=== PATIENT | female | born 1945 | race Caucasian/White ===

== ENCOUNTER 2018-02-22 12:34 | Emergency (ER) | payer MEDICARE, MEDICAID ==
[~2018-02-22] VITALS: Ht 162.6 cm; Wt 77.3 kg
[~2018-02-22 12:34] MED LIST: ALPR0.5T8 PO; AMLO10TA2 PO; ATOR10TA70 PO; CEPH500C5 PO; HYDR-565 PO; LISI-234 PO; METF500T PO; METO-292 PO; ONDA8TAB6 PO; PANT-47 PO; PHEN-824 PO; POLY119P2 PO; PREG150C PO; TRAZ-146 PO
[2018-02-22 12:44] VITALS: BP 157/97
[2018-02-22] MEDS ORDERED: ONDA4TAB9 SL (13:56)
== END 2018-02-22 14:13 | disposition home or self-care (01) ==
LOC: ER 12:34
DX: R11.2 Nausea with vomiting, unspecified (principal); I10 Essential (primary) hypertension; G89.29 Other chronic pain; E11.9 Type 2 diabetes mellitus without complications; Z90.49 Acquired absence of other specified parts of digestive tract; Z98.890 Other specified postprocedural states; Z79.84 Long term (current) use of oral hypoglycemic drugs; Z79.899 Other long term (current) drug therapy
CPT/HCPCS: 99283

== ENCOUNTER 2019-01-10 09:02 | Emergency (ER) | payer MEDICARE, MEDICAID ==
[~2019-01-10] VITALS: Ht 162.6 cm; Wt 69.5 kg
[~2019-01-10 09:02] MED LIST changes: -CEPH500C5 PO; +HYDR-4353 PO; -HYDR-565 PO; +ONDA4TAB6 PO; -TRAZ-146 PO; +TRAZ-219 PO
[2019-01-10 09:58] LABS: CLARITY,URINE CLOUDY (Clear); COLOR,URINE YELLOW (Yellow); GLUCOSE, URINE NEGATIVE (Neg); KETONES,URINE 40 mg/dl (Neg); LEUKOCYTE ESTERASE ,URINE NEGATIVE (Neg); NITRITES, URINE POSITIVE (Neg); OCCULT BLOOD,URINE SMALL (Neg); PROTEIN,URINE 100 mg/dl (Neg); UROBILINOGEN,URINE 0.2 E.U/dL (0.2-1.0)
[2019-01-10 10:05] LABS: UA COLLECTION TYPE STRAIGHT CATH
[2019-01-10 10:07] LABS: ALANINE AMINOTRANSFERASE 19 U/L (12-78); ALBUMIN 3.9 G/DL (3.4-5.0); ALBUMIN/GLOBULIN RATIO 0.9 (1.1-1.5); ALKALINE PHOSPHATASE 92 IU/L (46-116); ANION GAP 14 (8-16); ASPARTATE AMINO TRANSFERASE 17 U/L (10-37); BILIRUBIN,TOTAL 0.5 MG/DL (0.1-1.0); BLOOD UREA NITROGEN 11 MG/DL (7-18); BUN/CREATININE RATIO 11.5 (6.6-38.0); CALCIUM 9.4 MG/DL (8.5-10.1); CHLORIDE 99 MMOL/L (99-107); CREATININE 0.96 MG/DL (0.40-0.90); GLUCOSE 143 MG/DL (70-104); LIPASE 50 U/L (73-393); PARTIAL THROMBOPLASTIN TIME 27 SECONDS (22-32); POTASSIUM 3.4 MMOL/L (3.5-5.1); PROTHROMBIN TIME 10.1 SECONDS (9.0-12.0); SODIUM 138 MMOL/L (135-145); TOTAL CARBON DIOXIDE 25.2 MMOL/L (24-32); TOTAL PROTEIN 8.1 G/DL (6.4-8.2); eGFR 57 ML/MIN
[2019-01-10 10:10] LABS: BASOPHILS # (AUTO) 0.1 X10'3 (0-0.2); BASOPHILS % (AUTO) 1.2 % (0-1); EOSINOPHILS % (AUTO) 0.4 % (0-6); HEMATOCRIT 42.6 % (35.0-45.0); HEMOGLOBIN 14.1 g/dl (12.0-16.0); LYMPHOCYTES # (AUTO) 1.3 X10'3 (1.1-4.8); LYMPHOCYTES % (AUTO) 16.5 % (21-51); MEAN CORPUSCULAR HEMOGLOBIN 29.4 PG (27.0-31.0); MEAN CORPUSCULAR HGB CONC 33.1 g/dL (33.0-36.5); MEAN CORPUSCULAR VOLUME 88.7 FL (78-98); MEAN PLATELET VOLUME 7.6 FL (7.4-10.4); MONOCYTES # (AUTO) 0.4 X10'3 (0-0.9); MONOCYTES % (AUTO) 4.5 % (2-12); NEUTROPHILS # (AUTO) 6.1 X10'3 (1.8-7.7); NEUTROPHILS % (AUTO) 77.4 % (42-75); PLATELET COUNT 318 X10'3 (140-440); WHITE BLOOD COUNT 7.9 X10'3 (4.5-11.0)
[2019-01-10 10:20] LABS: BACTERIA,URINE 4+ /HPF (Neg); MUCUS STRANDS FEW /LPF (Neg); SQUAMOUS EPITHELIAL CELL,UR MANY /LPF (FEW)
[2019-01-10] MEDS ORDERED: normal saline 1000ML IV soln IVB ONE (10:20)
[2019-01-10 10:35] VITALS: BP 170/98
--- NOTE | 2019-01-10 11:06 | NUR ---
Message left with son Rigo at this time.
--- NOTE | 2019-01-10 11:21 | NUR ---
message left with patients son. Patient needs ride home.
--- NOTE | 2019-01-10 11:31 | NUR ---
SPOKE WITH PTS SON KAE, SON TO CUFF SETTER LOCKSTITCH PT IN APPROX 30 MIN.
== END 2019-01-10 12:05 | disposition home or self-care (01) ==
LOC: ER 09:03
DX: R10.84 Generalized abdominal pain (principal); G89.29 Other chronic pain; K59.00 Constipation, unspecified; E78.00 Pure hypercholesterolemia, unspecified; I10 Essential (primary) hypertension; E11.9 Type 2 diabetes mellitus without complications; Z90.49 Acquired absence of other specified parts of digestive tract; Z90.710 Acquired absence of both cervix and uterus; Z98.51 Tubal ligation status; Z98.890 Other specified postprocedural states; Z79.84 Long term (current) use of oral hypoglycemic drugs; Z79.899 Other long term (current) drug therapy
CPT/HCPCS: 36415; 74018; 80053; 81001; 83690; 85025; 85610; 85730; 87077; 87088; 87186; 93005; 99284; J7030; P9612

== ENCOUNTER 2019-01-13 12:42 | Emergency (ER) | payer MEDICARE, MEDICAID ==
[~2019-01-13] VITALS: Ht 162.6 cm; Wt 74.7 kg
--- NOTE | 2019-01-13 12:54 | NUR ---
REPORT FROM EMS: PT HERE FOR ABDOMINAL AND BACK PAIN. PER EMS THIS IS A CHRONIC CONDITION. PATIENT TAKES NORCO FOR PAIN AND TRAZADONE FOR SLEEP AND ZOFRAN FOR NAUSEA. PATIENT WAS HERE ON 01/08 AND 01/10/19 FOR SIMILAR COMPLAINT BIBA FROM HOME
[2019-01-13 13:20] VITALS: BP 186/98
[2019-01-13] MEDS ORDERED: ketorolac tromethamine 15mg/ml inj. IM ONE (14:10)
[2019-01-14] MEDS ORDERED: POTA20TA19 PO (10:21)
[2019-01-14] MEDS ORDERED: ONDA4TAB12 PO (10:21)
[2019-01-14] MEDS ORDERED: CEPH500C5 PO (10:21)
== END 2019-01-13 14:19 | disposition home or self-care (01) ==
LOC: ER 12:43
DX: G89.29 Other chronic pain (principal); M54.5 Low back pain; R10.84 Generalized abdominal pain; I10 Essential (primary) hypertension; E78.00 Pure hypercholesterolemia, unspecified; G20 Parkinson's disease; Z90.49 Acquired absence of other specified parts of digestive tract; Z90.710 Acquired absence of both cervix and uterus; Z98.51 Tubal ligation status
CPT/HCPCS: 96372; 99283; J1885

== ENCOUNTER 2019-01-14 07:51 | Emergency (ER) | payer MEDICARE, MEDICAID ==
[~2019-01-14] VITALS: Ht 162.6 cm; Wt 70.0 kg
[2019-01-14] MEDS ORDERED: metoclopramide 5 mg/ml inj IV ONE (08:00)
[2019-01-14] MEDS ORDERED: normal saline 1000ML IV soln IVB ONE ×2 (08:00)
[2019-01-14] MEDS ORDERED: diphenhydrAMINE 50 mg/ml inj IV ONE (08:00)
[2019-01-14] MEDS ORDERED: ketorolac tromethamine 15mg/ml inj. IV ONE (08:00)
[2019-01-14 08:35] LABS: BASOPHILS # (AUTO) 0.1 X10'3 (0-0.2); BASOPHILS % (AUTO) 0.9 % (0-1); EOSINOPHILS # (AUTO) 0.2 X10'3 (0-0.9); EOSINOPHILS % (AUTO) 2.3 % (0-6); HEMATOCRIT 41.1 % (35.0-45.0); LYMPHOCYTES # (AUTO) 1.8 X10'3 (1.1-4.8); LYMPHOCYTES % (AUTO) 27.3 % (21-51); MEAN CORPUSCULAR VOLUME 88.4 FL (78-98); MEAN PLATELET VOLUME 7.8 FL (7.4-10.4); MONOCYTES # (AUTO) 0.4 X10'3 (0-0.9); MONOCYTES % (AUTO) 5.6 % (2-12); NEUTROPHILS # (AUTO) 4.1 X10'3 (1.8-7.7); NEUTROPHILS % (AUTO) 63.9 % (42-75); PLATELET COUNT 285 X10'3 (140-440); RED BLOOD COUNT 4.65 X10'6 (4.20-5.60); RED CELL DISTRIBUTION WIDTH 13.5 % (11.5-14.5); WHITE BLOOD COUNT 6.5 X10'3 (4.5-11.0)
[2019-01-14 08:42] LABS: ALANINE AMINOTRANSFERASE 17 U/L (12-78); ALBUMIN 3.9 G/DL (3.4-5.0); ALKALINE PHOSPHATASE 86 IU/L (46-116); ANION GAP 16 (8-16); ASPARTATE AMINO TRANSFERASE 18 U/L (10-37); BILIRUBIN,TOTAL 0.9 MG/DL (0.1-1.0); BLOOD UREA NITROGEN 19 MG/DL (7-18); CALCIUM 9.2 MG/DL (8.5-10.1); CHLORIDE 99 MMOL/L (99-107); CREATININE 0.95 MG/DL (0.40-0.90); GLUCOSE 139 MG/DL (70-104); LIPASE 70 U/L (73-393); SODIUM 138 MMOL/L (135-145); TOTAL CARBON DIOXIDE 23.5 MMOL/L (24-32); TOTAL PROTEIN 7.9 G/DL (6.4-8.2); eGFR 57 ML/MIN
[2019-01-14 08:53] LABS: POTASSIUM 2.8 MMOL/L (3.5-5.1)
[2019-01-14 09:02] LABS: CLARITY,URINE CLOUDY (Clear); COLOR,URINE YELLOW (Yellow); GLUCOSE, URINE NEGATIVE (Neg); KETONES,URINE 40 mg/dl (Neg); LEUKOCYTE ESTERASE ,URINE NEGATIVE (Neg); NITRITES, URINE POSITIVE (Neg); OCCULT BLOOD,URINE TRACE-INTACT (Neg); PROTEIN,URINE TRACE mg/dl (Neg)
[2019-01-14 09:03] LABS: UA COLLECTION TYPE CLN CATCH MIDSTREAM
[2019-01-14] MEDS ORDERED: potassium Cl 20 mEq SR tablet PO STA (09:03)
[2019-01-14] MEDS ORDERED: potassium 10mEq/100ml NS w/LIDOcaine (10mg/bag) IV ONE (09:05)
[2019-01-14 09:10] LABS: SQUAMOUS EPITHELIAL CELL,UR MODERATE /LPF (FEW)
[2019-01-14 09:11] LABS: BACTERIA,URINE 3+ /HPF (Neg); HYALINE CASTS 0-3 /LPF (NEGATIVE); RBC,URINE 0-2 /HPF (0-2); TRANSITIONAL EPI CELLS,URINE FEW /HPF; WBC,URINE 0-4 /HPF (0-4)
[2019-01-14 10:07] VITALS: BP 176/91
[2019-01-14] MEDS ORDERED: CEPH500C5 PO (10:21)
[2019-01-14] MEDS ORDERED: POTA20TA19 PO (10:21)
[2019-01-14] MEDS ORDERED: ONDA4TAB12 PO (10:21)
== END 2019-01-14 10:44 | disposition home or self-care (01) ==
LOC: ER 07:52
DX: E86.0 Dehydration (principal); E87.6 Hypokalemia; N39.0 Urinary tract infection, site not specified; G89.29 Other chronic pain; R10.84 Generalized abdominal pain; R11.2 Nausea with vomiting, unspecified; E78.00 Pure hypercholesterolemia, unspecified; I10 Essential (primary) hypertension; E11.9 Type 2 diabetes mellitus without complications; Z90.49 Acquired absence of other specified parts of digestive tract; Z90.710 Acquired absence of both cervix and uterus; Z98.51 Tubal ligation status; Z79.899 Other long term (current) drug therapy
CPT/HCPCS: 36415; 80053; 81001; 83690; 85025; 87077; 87088; 87186; 96374; 96375; 99284; J1200; J1885; J2765; J3480; J7030

== ENCOUNTER 2019-07-09 11:58 | Emergency (ER) | payer MEDICARE, MEDICAID ==
[~2019-07-09] VITALS: Ht 162.6 cm; Wt 72.8 kg
[~2019-07-09 11:58] MED LIST changes: +CEPH500C5 PO; +ONDA4TAB12 PO
[2019-07-09 13:37] LABS: BASOPHILS # (AUTO) 0.1 X10'3 (0-0.2); BASOPHILS % (AUTO) 0.8 % (0-1); EOSINOPHILS % (AUTO) 0.4 % (0-6); HEMATOCRIT 42.5 % (35.0-45.0); HEMOGLOBIN 14.3 g/dl (12.0-16.0); LYMPHOCYTES # (AUTO) 2.2 X10'3 (1.1-4.8); LYMPHOCYTES % (AUTO) 24.2 % (21-51); MEAN CORPUSCULAR HEMOGLOBIN 29.9 PG (27.0-31.0); MEAN CORPUSCULAR HGB CONC 33.7 g/dL (33.0-36.5); MEAN CORPUSCULAR VOLUME 88.5 FL (78-98); MEAN PLATELET VOLUME 8.5 FL (7.4-10.4); MONOCYTES # (AUTO) 0.5 X10'3 (0-0.9); MONOCYTES % (AUTO) 5.4 % (2-12); NEUTROPHILS # (AUTO) 6.3 X10'3 (1.8-7.7); NEUTROPHILS % (AUTO) 69.2 % (42-75); PLATELET COUNT 295 X10'3 (140-440); RED CELL DISTRIBUTION WIDTH 13.9 % (11.5-14.5); WHITE BLOOD COUNT 9.1 X10'3 (4.5-11.0)
[2019-07-09 13:45] LABS: ALANINE AMINOTRANSFERASE 15 U/L (12-78); ALBUMIN 3.9 G/DL (3.4-5.0); ALKALINE PHOSPHATASE 66 IU/L (46-116); ANION GAP 12 (8-16); ASPARTATE AMINO TRANSFERASE 11 U/L (10-37); BILIRUBIN,TOTAL 0.9 MG/DL (0.1-1.0); BLOOD UREA NITROGEN 12 MG/DL (7-18); BUN/CREATININE RATIO 10.1 (6.6-38.0); CALCIUM 9.3 MG/DL (8.5-10.1); CHLORIDE 101 MMOL/L (99-107); CREATININE 1.19 MG/DL (0.40-0.90); GLUCOSE 125 MG/DL (70-104); LIPASE 93 U/L (73-393); POTASSIUM 3.8 MMOL/L (3.5-5.1); SODIUM 137 MMOL/L (135-145); TOTAL CARBON DIOXIDE 24.1 MMOL/L (24-32); TOTAL PROTEIN 7.7 G/DL (6.4-8.2); eGFR 44 ML/MIN
[2019-07-09] MEDS ORDERED: ONDA4TAB12 PO (15:45)
[2019-07-09] MEDS ORDERED: diphenhydrAMINE 50 mg/ml inj IV ONE (15:45)
[2019-07-09] MEDS ORDERED: morphine 2 MG/ML inj. syringe IV ONE (15:45)
[2019-07-09] MEDS ORDERED: metoclopramide 5 mg/ml inj IV ONE (15:45)
[2019-07-09] MEDS ORDERED: AMOX-422 PO (15:45)
[2019-07-09 15:54] VITALS: BP 189/104
--- NOTE | 2019-07-09 15:55 | NUR ---
pt stated will call son eladia who is her ocean import representative to take her home.
== END 2019-07-09 17:03 | disposition home or self-care (01) ==
LOC: ER 11:58
DX: R10.31 Right lower quadrant pain (principal); G20 Parkinson's disease; E78.00 Pure hypercholesterolemia, unspecified; I10 Essential (primary) hypertension; E11.9 Type 2 diabetes mellitus without complications; G89.29 Other chronic pain; F41.9 Anxiety disorder, unspecified; Z90.49 Acquired absence of other specified parts of digestive tract; Z90.710 Acquired absence of both cervix and uterus; Z98.51 Tubal ligation status; Z98.890 Other specified postprocedural states; Z79.2 Long term (current) use of antibiotics; Z79.84 Long term (current) use of oral hypoglycemic drugs; Z79.899 Other long term (current) drug therapy
CPT/HCPCS: 36415; 80053; 83690; 85025; 85610; 96374; 96375; 99283; J1200; J2270; J2765

== ENCOUNTER 2019-07-13 10:18 | Emergency (ER) | payer MEDICARE, MEDICAID ==
[~2019-07-13] VITALS: Ht 175.3 cm; Wt 92.0 kg
[~2019-07-13 10:18] MED LIST changes: +AMOX-422 PO
[2019-07-13 11:28] LABS: BASOPHILS # (AUTO) 0.1 X10'3 (0-0.2); EOSINOPHILS # (AUTO) 0.2 X10'3 (0-0.9); EOSINOPHILS % (AUTO) 3.6 % (0-6); HEMATOCRIT 35.5 % (35.0-45.0); HEMOGLOBIN 11.9 g/dl (12.0-16.0); LYMPHOCYTES # (AUTO) 2.1 X10'3 (1.1-4.8); MEAN CORPUSCULAR HEMOGLOBIN 29.8 PG (27.0-31.0); MEAN CORPUSCULAR HGB CONC 33.6 g/dL (33.0-36.5); MEAN CORPUSCULAR VOLUME 88.7 FL (78-98); MEAN PLATELET VOLUME 8.3 FL (7.4-10.4); MONOCYTES # (AUTO) 0.4 X10'3 (0-0.9); MONOCYTES % (AUTO) 6.1 % (2-12); NEUTROPHILS # (AUTO) 3.2 X10'3 (1.8-7.7); NEUTROPHILS % (AUTO) 54.3 % (42-75); PLATELET COUNT 229 X10'3 (140-440); RED CELL DISTRIBUTION WIDTH 13.6 % (11.5-14.5)
[2019-07-13 11:39] LABS: CLARITY,URINE CLEAR (Clear); COLOR,URINE YELLOW (Yellow); GLUCOSE, URINE NEGATIVE (Neg); KETONES,URINE NEGATIVE (Neg); LEUKOCYTE ESTERASE ,URINE NEGATIVE (Neg); NITRITES, URINE NEGATIVE (Neg); OCCULT BLOOD,URINE NEGATIVE (Neg); PH,URINE 6.5 (4.8-8.0); PROTEIN,URINE NEGATIVE (Neg); UROBILINOGEN,URINE 0.2 E.U/dL (0.2-1.0)
[2019-07-13 11:43] LABS: UA COLLECTION TYPE STRAIGHT CATH
[2019-07-13 11:44] LABS: ALANINE AMINOTRANSFERASE 6 U/L (12-78); ALBUMIN 3.1 G/DL (3.4-5.0); ALKALINE PHOSPHATASE 54 IU/L (46-116); ANION GAP 11 (8-16); ASPARTATE AMINO TRANSFERASE 7 U/L (10-37); BILIRUBIN,TOTAL 0.4 MG/DL (0.1-1.0); BLOOD UREA NITROGEN 14 MG/DL (7-18); BUN/CREATININE RATIO 19.2 (6.6-38.0); CALCIUM 8.4 MG/DL (8.5-10.1); CHLORIDE 108 MMOL/L (99-107); CREATININE 0.73 MG/DL (0.40-0.90); GLUCOSE 104 MG/DL (70-104); POTASSIUM 3.8 MMOL/L (3.5-5.1); SODIUM 142 MMOL/L (135-145); TOTAL CARBON DIOXIDE 22.8 MMOL/L (24-32); TOTAL PROTEIN 6.2 G/DL (6.4-8.2); eGFR 78 ML/MIN
[2019-07-13 12:00] VITALS: BP 165/99
[2019-07-13] MEDS ORDERED: ondansetron/PF 4mg/2ml inj IV ONE (12:55)
== END 2019-07-13 14:00 | disposition home or self-care (01) ==
LOC: ER 10:19
DX: R10.32 Left lower quadrant pain (principal); G20 Parkinson's disease; E78.00 Pure hypercholesterolemia, unspecified; I10 Essential (primary) hypertension; E11.9 Type 2 diabetes mellitus without complications; G89.29 Other chronic pain; F41.9 Anxiety disorder, unspecified; Z90.49 Acquired absence of other specified parts of digestive tract; Z90.710 Acquired absence of both cervix and uterus; Z98.51 Tubal ligation status; Z98.890 Other specified postprocedural states
CPT/HCPCS: 36415; 74176; 80053; 81003; 85025; 85610; 96374; 99284; J2405; P9612

== ENCOUNTER 2019-07-14 17:54 | Emergency (ER) | payer MEDICARE, MEDICAID ==
[~2019-07-14] VITALS: Ht 162.6 cm; Wt 73.6 kg
[2019-07-14 18:40] VITALS: BP 160/122
[2019-07-14] MEDS ORDERED: proCHLORperazine 10 MG/2 ml inj IM ONE (19:35)
== END 2019-07-14 19:51 | disposition home or self-care (01) ==
LOC: ER 17:55
DX: G89.29 Other chronic pain (principal); R10.9 Unspecified abdominal pain; R11.0 Nausea; G20 Parkinson's disease; E78.00 Pure hypercholesterolemia, unspecified; I10 Essential (primary) hypertension; E11.9 Type 2 diabetes mellitus without complications; F41.9 Anxiety disorder, unspecified; Z90.49 Acquired absence of other specified parts of digestive tract; Z90.710 Acquired absence of both cervix and uterus; Z98.51 Tubal ligation status; Z88.1 Allergy status to other antibiotic agents; Z79.84 Long term (current) use of oral hypoglycemic drugs; Z79.899 Other long term (current) drug therapy
CPT/HCPCS: 96372; 99283; J0780

== ENCOUNTER 2019-08-01 06:52 | Emergency (ER) | payer MEDICARE, MEDICAID ==
[~2019-08-01] VITALS: Ht 162.6 cm; Wt 56.0 kg
[~2019-08-01 06:52] MED LIST changes: -AMOX-422 PO
[2019-08-01] MEDS ORDERED: ondansetron 4mg rapidly disintigrating tab PO ONE (07:25)
[2019-08-01] MEDS ORDERED: morphine 4 MG/ML inj SYRINge IM ONE (07:25)
[2019-08-01] MEDS ORDERED: ONDA8TAB13 PO (08:43)
[2019-08-01 09:00] VITALS: BP 175/94
== END 2019-08-01 08:59 | disposition home or self-care (01) ==
LOC: ER 06:52
DX: G89.29 Other chronic pain (principal); R10.84 Generalized abdominal pain; R11.2 Nausea with vomiting, unspecified; E78.00 Pure hypercholesterolemia, unspecified; I10 Essential (primary) hypertension; E11.9 Type 2 diabetes mellitus without complications; Z90.49 Acquired absence of other specified parts of digestive tract; Z90.710 Acquired absence of both cervix and uterus; Z98.51 Tubal ligation status; Z79.899 Other long term (current) drug therapy
CPT/HCPCS: 96374; 99284; J2270

== ENCOUNTER 2019-09-14 08:20 | Emergency (ER) | payer MEDICARE, MEDICAID ==
[~2019-09-14] VITALS: Ht 162.6 cm; Wt 88.0 kg
[~2019-09-14 08:20] MED LIST changes: +ONDA8TAB13 PO
[2019-09-14 08:52] LABS: BASOPHILS % (AUTO) 0.6 % (0-1); EOSINOPHILS % (AUTO) 0.6 % (0-6); HEMATOCRIT 38.5 % (35.0-45.0); HEMOGLOBIN 13.1 g/dl (12.0-16.0); LYMPHOCYTES % (AUTO) 18.8 % (21-51); MEAN CORPUSCULAR HEMOGLOBIN 30.2 PG (27.0-31.0); MEAN CORPUSCULAR HGB CONC 34.1 g/dL (33.0-36.5); MEAN CORPUSCULAR VOLUME 88.5 FL (78-98); MEAN PLATELET VOLUME 8.1 FL (7.4-10.4); MONOCYTES # (AUTO) 0.2 X10'3 (0-0.9); MONOCYTES % (AUTO) 3.6 % (2-12); NEUTROPHILS # (AUTO) 4.2 X10'3 (1.8-7.7); NEUTROPHILS % (AUTO) 76.4 % (42-75); PLATELET COUNT 217 X10'3 (140-440); RED BLOOD COUNT 4.35 X10'6 (4.20-5.60); RED CELL DISTRIBUTION WIDTH 14.2 % (11.5-14.5); WHITE BLOOD COUNT 5.5 X10'3 (4.5-11.0)
[2019-09-14 09:03] LABS: ALBUMIN 3.7 G/DL (3.4-5.0); ALKALINE PHOSPHATASE 60 IU/L (46-116); ANION GAP 10 (8-16); ASPARTATE AMINO TRANSFERASE 11 U/L (10-37); BILIRUBIN,TOTAL 0.7 MG/DL (0.1-1.0); BLOOD UREA NITROGEN 14 MG/DL (7-18); BUN/CREATININE RATIO 13.6 (6.6-38.0); CALCIUM 9.3 MG/DL (8.5-10.1); CHLORIDE 99 MMOL/L (99-107); CREATININE 1.03 MG/DL (0.40-0.90); GLUCOSE 131 MG/DL (70-104); POTASSIUM 3.5 MMOL/L (3.5-5.1); SODIUM 136 MMOL/L (135-145); TOTAL CARBON DIOXIDE 26.7 MMOL/L (24-32); TOTAL PROTEIN 7.4 G/DL (6.4-8.2); eGFR 52 ML/MIN
[2019-09-14 09:05] LABS: ALANINE AMINOTRANSFERASE < 6 U/L (12-78)
[2019-09-14] MEDS ORDERED: ondansetron/PF 4mg/2ml inj IV ONE (09:35)
[2019-09-14] MEDS ORDERED: HYDROcodone/acetaminophen 5mg/325mg tablet PO ONE (09:35)
[2019-09-14 09:57] LABS: LIPASE 54 U/L (73-393)
[2019-09-14] MEDS ORDERED: HYDR-3965 PO (10:22)
[2019-09-14 11:03] VITALS: BP 204/80
== END 2019-09-14 11:08 | disposition home or self-care (01) ==
LOC: ER 08:20
DX: G89.29 Other chronic pain (principal); R10.11 Right upper quadrant pain; R10.13 Epigastric pain; R11.10 Vomiting, unspecified; E78.00 Pure hypercholesterolemia, unspecified; I10 Essential (primary) hypertension; E11.9 Type 2 diabetes mellitus without complications; F41.9 Anxiety disorder, unspecified; Z90.49 Acquired absence of other specified parts of digestive tract; Z90.710 Acquired absence of both cervix and uterus; Z98.51 Tubal ligation status; Z98.890 Other specified postprocedural states; Z79.84 Long term (current) use of oral hypoglycemic drugs; Z79.899 Other long term (current) drug therapy
CPT/HCPCS: 36415; 80053; 83690; 85025; 85610; 96374; 99283; J2405

== ENCOUNTER 2019-10-05 09:21 | Emergency (ER) | payer MEDICARE, MEDICAID ==
[~2019-10-05] VITALS: Ht 162.6 cm; Wt 68.2 kg
[~2019-10-05 09:21] MED LIST changes: +HYDR-3965 PO
[2019-10-05] MEDS ORDERED: normal saline 1000ml 1,000 ML IV ONE ×2 (09:45→11:04)
[2019-10-05] MEDS ORDERED: metoclopramide 5 mg/ml inj IV ONE (09:45)
[2019-10-05 09:48] LABS: BASOPHILS % (AUTO) 0.9 % (0-1); EOSINOPHILS # (AUTO) 0.1 X10'3 (0-0.9); EOSINOPHILS % (AUTO) 1.5 % (0-6); HEMATOCRIT 40.4 % (35.0-45.0); HEMOGLOBIN 13.6 g/dl (12.0-16.0); LYMPHOCYTES # (AUTO) 1.7 X10'3 (1.1-4.8); LYMPHOCYTES % (AUTO) 30.3 % (21-51); MEAN CORPUSCULAR HEMOGLOBIN 29.8 PG (27.0-31.0); MEAN CORPUSCULAR HGB CONC 33.7 g/dL (33.0-36.5); MEAN CORPUSCULAR VOLUME 88.5 FL (78-98); MEAN PLATELET VOLUME 8.7 FL (7.4-10.4); MONOCYTES # (AUTO) 0.4 X10'3 (0-0.9); MONOCYTES % (AUTO) 6.9 % (2-12); NEUTROPHILS # (AUTO) 3.5 X10'3 (1.8-7.7); NEUTROPHILS % (AUTO) 60.4 % (42-75); PLATELET COUNT 238 X10'3 (140-440); RED BLOOD COUNT 4.56 X10'6 (4.20-5.60); RED CELL DISTRIBUTION WIDTH 13.7 % (11.5-14.5); WHITE BLOOD COUNT 5.7 X10'3 (4.5-11.0)
[2019-10-05 10:02] LABS: ALANINE AMINOTRANSFERASE 7 U/L (12-78); ALBUMIN 3.7 G/DL (3.4-5.0); ALKALINE PHOSPHATASE 69 IU/L (46-116); ANION GAP 10 (8-16); ASPARTATE AMINO TRANSFERASE 11 U/L (10-37); BILIRUBIN,TOTAL 0.6 MG/DL (0.1-1.0); BLOOD UREA NITROGEN 13 MG/DL (7-18); BUN/CREATININE RATIO 14.6 (6.6-38.0); CALCIUM 9.1 MG/DL (8.5-10.1); CHLORIDE 100 MMOL/L (99-107); CREATININE 0.89 MG/DL (0.40-0.90); GLUCOSE 122 MG/DL (70-104); LIPASE 71 U/L (73-393); POTASSIUM 3.5 MMOL/L (3.5-5.1); SODIUM 136 MMOL/L (135-145); TOTAL CARBON DIOXIDE 25.8 MMOL/L (24-32); TOTAL PROTEIN 7.4 G/DL (6.4-8.2); eGFR 62 ML/MIN
[2019-10-05 11:03] LABS: CLARITY,URINE CLOUDY (Clear); COLOR,URINE YELLOW (Yellow); GLUCOSE, URINE NEGATIVE (Neg); KETONES,URINE 15 mg/dl (Neg); LEUKOCYTE ESTERASE ,URINE MODERATE (Neg); NITRITES, URINE NEGATIVE (Neg); OCCULT BLOOD,URINE NEGATIVE (Neg); PROTEIN,URINE TRACE mg/dl (Neg); UROBILINOGEN,URINE 0.2 E.U/dL (0.2-1.0)
[2019-10-05] MEDS ORDERED: morphine 4 MG/ML inj SYRINge IV ONE (11:05)
[2019-10-05] MEDS ORDERED: ceFOXitin 1 GM/D5W 50mL IVPB 1,000 GM in normal saline 100ml IV soln 100 ML IV ONE (11:05)
[2019-10-05 11:13] LABS: UA COLLECTION TYPE CLN CATCH MIDSTREAM
[2019-10-05 11:16] VITALS: BP 199/72
[2019-10-05 11:30] LABS: WBC,URINE TNTC /HPF (0-4)
[2019-10-05 11:31] LABS: BACTERIA,URINE 4+ /HPF (Neg); RBC,URINE NONE SEEN /HPF (0-2); SQUAMOUS EPITHELIAL CELL,UR MANY /LPF (FEW)
[2019-10-05 11:32] LABS: WBC CLUMPS,URINE FEW /HPF (NEGATIVE)
[2019-10-05] MEDS ORDERED: iohexol 300mg/ml 100ml inj. ONE (11:32)
[2019-10-05] MEDS ORDERED: ceFOXitin 1 GM/D5W 50mL IVPB 50 ML IV ONE (11:35)
[2019-10-05] MEDS ORDERED: CefTRIAXone 1000mg IM Kit (w/lidocaine diluent) IM ONE (12:20)
[2019-10-05] MEDS ORDERED: CEPH500C5 PO (12:26)
[2019-10-05] MEDS ORDERED: ondansetron/PF 4mg/2ml inj IV ONE (12:50)
[2019-10-05] MEDS ORDERED: metroNIDAZOLE-Flagyl 500mg/NS 100 ML IV SCH (20:00)
== END 2019-10-05 14:08 | disposition home or self-care (01) ==
LOC: ER 09:22
DX: N39.0 Urinary tract infection, site not specified (principal); R11.2 Nausea with vomiting, unspecified; I10 Essential (primary) hypertension; E78.00 Pure hypercholesterolemia, unspecified; E11.9 Type 2 diabetes mellitus without complications; G89.29 Other chronic pain; F41.9 Anxiety disorder, unspecified; Z90.49 Acquired absence of other specified parts of digestive tract; Z90.710 Acquired absence of both cervix and uterus; Z98.51 Tubal ligation status; Z98.890 Other specified postprocedural states; Z79.84 Long term (current) use of oral hypoglycemic drugs; Z79.899 Other long term (current) drug therapy
CPT/HCPCS: 36415; 74177; 80053; 81001; 83690; 85025; 96365; 96372; 96375; 99284; J0694; J0696; J2270; J2405; J2765; J7030; Q9967; 96361

== ENCOUNTER 2019-10-20 09:45 | Emergency (ER) | payer MEDICARE, MEDICAID ==
[~2019-10-20] VITALS: Ht 162.6 cm; Wt 70.5 kg
[~2019-10-20 09:45] MED LIST changes: -HYDR-3965 PO
[2019-10-20] MEDS ORDERED: ondansetron/PF 4mg/2ml inj IV ONE (09:55)
[2019-10-20] MEDS ORDERED: normal saline 1000ML IV soln IVB ONE ×2 (09:55→11:10)
--- NOTE | 2019-10-20 10:21 | NUR ---
PT STATES THAT WHEN THE FLUID IS FINISHED SHE FOR SURE WILL NEED TO VOID. BRING COMMODE IN ROOM WITH HAT AND GIVE PT INSTRUCTIONS ON COLLECTION. ALSO GIVE PT CALL LIGHT FOR ASSISTANCE.
[2019-10-20 10:23] LABS: BASOPHILS % (AUTO) 0.4 % (0-1); EOSINOPHILS % (AUTO) 0.1 % (0-6); HEMATOCRIT 42.8 % (35.0-45.0); HEMOGLOBIN 14.5 g/dl (12.0-16.0); LYMPHOCYTES # (AUTO) 1.1 X10'3 (1.1-4.8); LYMPHOCYTES % (AUTO) 11.1 % (21-51); MEAN CORPUSCULAR HEMOGLOBIN 29.6 PG (27.0-31.0); MEAN CORPUSCULAR HGB CONC 33.9 g/dL (33.0-36.5); MEAN CORPUSCULAR VOLUME 87.4 FL (78-98); MEAN PLATELET VOLUME 8.6 FL (7.4-10.4); MONOCYTES # (AUTO) 0.3 X10'3 (0-0.9); MONOCYTES % (AUTO) 2.7 % (2-12); NEUTROPHILS # (AUTO) 8.4 X10'3 (1.8-7.7); NEUTROPHILS % (AUTO) 85.7 % (42-75); PLATELET COUNT 242 X10'3 (140-440); RED CELL DISTRIBUTION WIDTH 13.4 % (11.5-14.5); WHITE BLOOD COUNT 9.8 X10'3 (4.5-11.0)
[2019-10-20 10:58] LABS: ALANINE AMINOTRANSFERASE 11 U/L (12-78); ALBUMIN 3.7 G/DL (3.4-5.0); ALKALINE PHOSPHATASE 78 IU/L (46-116); ANION GAP 13 (8-16); ASPARTATE AMINO TRANSFERASE 10 U/L (10-37); BILIRUBIN,TOTAL 0.8 MG/DL (0.1-1.0); BLOOD UREA NITROGEN 12 MG/DL (7-18); BUN/CREATININE RATIO 12.8 (6.6-38.0); CALCIUM 9.2 MG/DL (8.5-10.1); CHLORIDE 94 MMOL/L (99-107); CREATININE 0.94 MG/DL (0.40-0.90); GLUCOSE 171 MG/DL (70-104); LIPASE 51 U/L (73-393); POTASSIUM 3.1 MMOL/L (3.5-5.1); SODIUM 131 MMOL/L (135-145); TOTAL CARBON DIOXIDE 23.7 MMOL/L (24-32); TOTAL PROTEIN 7.4 G/DL (6.4-8.2); eGFR 58 ML/MIN
--- NOTE | 2019-10-20 10:58 | NUR ---
PT STATES SHE TAKES MEDICATION FOR HTN BUT DIDNT TAKE IT TODAY DUE TO HER N/V
[2019-10-20] MEDS ORDERED: potassium Cl 20 mEq SR tablet PO STA (11:08)
[2019-10-20] MEDS ORDERED: metoclopramide 5 mg/ml inj IV ONE (11:10)
[2019-10-20 11:17] LABS: CLARITY,URINE CLOUDY (Clear); COLOR,URINE YELLOW (Yellow); GLUCOSE, URINE NEGATIVE (Neg); KETONES,URINE TRACE mg/dl (Neg); LEUKOCYTE ESTERASE ,URINE MODERATE (Neg); NITRITES, URINE NEGATIVE (Neg); OCCULT BLOOD,URINE SMALL (Neg); PH,URINE 6.5 (4.8-8.0); PROTEIN,URINE 100 mg/dl (Neg); UROBILINOGEN,URINE 0.2 E.U/dL (0.2-1.0)
[2019-10-20 11:20] LABS: UA COLLECTION TYPE CLN CATCH MIDSTREAM
[2019-10-20 11:32] LABS: SQUAMOUS EPITHELIAL CELL,UR MODERATE /LPF (FEW)
[2019-10-20 11:34] LABS: TRANSITIONAL EPI CELLS,URINE FEW /HPF
[2019-10-20 11:35] LABS: WBC,URINE 30-50 /HPF (0-4)
[2019-10-20 11:39] LABS: STARCH,URINE MANY /HPF (NEGATIVE)
[2019-10-20 11:40] LABS: BACTERIA,URINE 3+ /HPF (Neg)
[2019-10-20 11:41] LABS: WBC CLUMPS,URINE MANY /HPF (NEGATIVE)
[2019-10-20] MEDS ORDERED: cloNIDine 0.1 mg tablet PO ONE (12:15)
[2019-10-20 13:52] VITALS: BP 187/95
== END 2019-10-20 13:54 | disposition home or self-care (01) ==
LOC: ER 09:45
DX: E87.1 Hypo-osmolality and hyponatremia (principal); E87.6 Hypokalemia; R11.15 Cyclical vomiting syndrome unrelated to migraine; R11.2 Nausea with vomiting, unspecified; G89.29 Other chronic pain; R10.9 Unspecified abdominal pain; G20 Parkinson's disease; E78.00 Pure hypercholesterolemia, unspecified; I10 Essential (primary) hypertension; E11.9 Type 2 diabetes mellitus without complications; F41.9 Anxiety disorder, unspecified; Z90.49 Acquired absence of other specified parts of digestive tract; Z90.710 Acquired absence of both cervix and uterus; Z98.51 Tubal ligation status; Z98.890 Other specified postprocedural states; Z79.2 Long term (current) use of antibiotics; Z79.899 Other long term (current) drug therapy
CPT/HCPCS: 36415; 80053; 81001; 83690; 85025; 87077; 87088; 87186; 96361; 96374; 96375; 99283; J2405; J2765; J7030

== ENCOUNTER 2019-10-23 17:07 | Emergency (ER) | payer MEDICARE, MEDICAID ==
[~2019-10-23] VITALS: Ht 162.6 cm; Wt 70.5 kg
[2019-10-23] MEDS ORDERED: normal saline 1000ML IV soln IVB ONE (17:30)
[2019-10-23] MEDS ORDERED: ondansetron/PF 4mg/2ml inj IV ONE (17:30)
[2019-10-23] MEDS ORDERED: morphine 4 MG/ML inj SYRINge IV ONE (17:35)
[2019-10-23 18:04] LABS: BASOPHILS % (AUTO) 0.5 % (0-1); EOSINOPHILS # (AUTO) 0.1 X10'3 (0-0.9); EOSINOPHILS % (AUTO) 1.1 % (0-6); HEMATOCRIT 39.8 % (35.0-45.0); HEMOGLOBIN 13.6 g/dl (12.0-16.0); LYMPHOCYTES % (AUTO) 25.3 % (21-51); MEAN CORPUSCULAR HEMOGLOBIN 29.5 PG (27.0-31.0); MEAN CORPUSCULAR HGB CONC 34.1 g/dL (33.0-36.5); MEAN CORPUSCULAR VOLUME 86.6 FL (78-98); MEAN PLATELET VOLUME 8.5 FL (7.4-10.4); MONOCYTES # (AUTO) 0.6 X10'3 (0-0.9); MONOCYTES % (AUTO) 7.2 % (2-12); NEUTROPHILS # (AUTO) 5.1 X10'3 (1.8-7.7); NEUTROPHILS % (AUTO) 65.9 % (42-75); PLATELET COUNT 254 X10'3 (140-440); RED BLOOD COUNT 4.59 X10'6 (4.20-5.60); RED CELL DISTRIBUTION WIDTH 13.1 % (11.5-14.5); WHITE BLOOD COUNT 7.7 X10'3 (4.5-11.0)
[2019-10-23 18:08] LABS: ALANINE AMINOTRANSFERASE 6 U/L (12-78); ALBUMIN 3.5 G/DL (3.4-5.0); ALKALINE PHOSPHATASE 70 IU/L (46-116); ANION GAP 12 (8-16); ASPARTATE AMINO TRANSFERASE 22 U/L (10-37); BILIRUBIN,TOTAL 0.7 MG/DL (0.1-1.0); BLOOD UREA NITROGEN 9 MG/DL (7-18); BUN/CREATININE RATIO 9.6 (6.6-38.0); CALCIUM 8.6 MG/DL (8.5-10.1); CHLORIDE 99 MMOL/L (99-107); CREATININE 0.94 MG/DL (0.40-0.90); GLUCOSE 105 MG/DL (70-104); LIPASE 82 U/L (73-393); POTASSIUM 3.2 MMOL/L (3.5-5.1); SODIUM 136 MMOL/L (135-145); TOTAL CARBON DIOXIDE 24.8 MMOL/L (24-32); TOTAL PROTEIN 6.9 G/DL (6.4-8.2); eGFR 58 ML/MIN
--- NOTE | 2019-10-23 18:44 | NUR ---
Pt. BP 209/78, Dr. Smith aware. Dr. Smith approved discharge due to Pt. Hx of high blood pressure being Pt. baseline.
[2019-10-23 19:17] VITALS: BP 229/78
[2019-10-23 19:28] LABS: CLARITY,URINE CLOUDY (Clear); COLOR,URINE YELLOW (Yellow); GLUCOSE, URINE NEGATIVE (Neg); KETONES,URINE NEGATIVE (Neg); LEUKOCYTE ESTERASE ,URINE SMALL (Neg); NITRITES, URINE NEGATIVE (Neg); OCCULT BLOOD,URINE NEGATIVE (Neg); PROTEIN,URINE NEGATIVE (Neg); URINE HCG NEGATIVE (NEG); UROBILINOGEN,URINE 0.2 E.U/dL (0.2-1.0)
[2019-10-23 19:37] LABS: UA COLLECTION TYPE CLN CATCH MIDSTREAM
[2019-10-23 19:48] LABS: BACTERIA,URINE 3+ /HPF (Neg); MUCUS STRANDS NONE SEEN /LPF (Neg); RBC,URINE NONE SEEN /HPF (0-2); SQUAMOUS EPITHELIAL CELL,UR FEW /LPF (FEW)
[2019-10-23 19:49] LABS: WBC CLUMPS,URINE FEW /HPF (NEGATIVE)
--- NOTE | 2019-10-26 13:18 | NUR ---
PT CALLED WITH REGARDS TO HER VISIT ON 10/23/19 AND INFORMED THAT LAB RESULTS SHOWED SHE WAS POSITIVE FOR A UTI AND THAT ABX WERE NEEDED TO TREAT IT. PT REQUESTED THAT RX BE CALLED INTO [facility] [place]. KEFLEX 500MG PO TID X7 DAYS # 21 CALLED INTO [facility] [place] REQUESTED.
== END 2019-10-23 19:15 | disposition home or self-care (01) ==
LOC: ER 17:08
DX: G89.29 Other chronic pain (principal); R10.33 Periumbilical pain; R11.2 Nausea with vomiting, unspecified; E78.00 Pure hypercholesterolemia, unspecified; I10 Essential (primary) hypertension; E11.9 Type 2 diabetes mellitus without complications; F41.9 Anxiety disorder, unspecified; Z90.49 Acquired absence of other specified parts of digestive tract; Z90.710 Acquired absence of both cervix and uterus; Z98.51 Tubal ligation status; Z98.890 Other specified postprocedural states; Z79.84 Long term (current) use of oral hypoglycemic drugs; Z79.899 Other long term (current) drug therapy
CPT/HCPCS: 36415; 80053; 81001; 81025; 83690; 85025; 87077; 87088; 87186; 96361; 96374; 96375; 99283; J2270; J2405; J7030

== ENCOUNTER 2019-10-24 08:27 | Emergency (ER) | payer MEDICARE, MEDICAID ==
[~2019-10-24] VITALS: Ht 162.6 cm; Wt 70.5 kg
[2019-10-24] MEDS ORDERED: morphine 4 MG/ML inj SYRINge IV ONE (08:55)
[2019-10-24] MEDS ORDERED: pantoprazole 40 MG vial IV ONE (08:55)
[2019-10-24] MEDS ORDERED: ondansetron/PF 4mg/2ml inj IV ONE (08:55)
[2019-10-24] MEDS ORDERED: diphenhydrAMINE 50 mg/ml inj IV ONE (08:55)
[2019-10-24] MEDS ORDERED: amLODIPine 5mg tablet PO ONE (09:40)
[2019-10-24] MEDS ORDERED: lisinopril 10 MG tablet PO ONE (09:40)
--- NOTE | 2019-10-24 09:53 | NUR ---
iva was told about pt's high bp of 214/113
--- NOTE | 2019-10-24 10:05 | NUR ---
patient will be observed for an hour to see if the bp comes down.
--- NOTE | 2019-10-24 10:14 | NUR ---
bp: 180/76
[2019-10-24 10:52] VITALS: BP 158/99
== END 2019-10-24 10:54 | disposition home or self-care (01) ==
LOC: ER 08:28
DX: R10.84 Generalized abdominal pain (principal); R11.2 Nausea with vomiting, unspecified; G89.29 Other chronic pain; G20 Parkinson's disease; E78.00 Pure hypercholesterolemia, unspecified; I10 Essential (primary) hypertension; E11.9 Type 2 diabetes mellitus without complications; F41.9 Anxiety disorder, unspecified; Z90.49 Acquired absence of other specified parts of digestive tract; Z90.710 Acquired absence of both cervix and uterus; Z98.51 Tubal ligation status; Z98.890 Other specified postprocedural states; Z79.2 Long term (current) use of antibiotics; Z79.899 Other long term (current) drug therapy
CPT/HCPCS: 96374; 96375; 99283; C9113; J1200; J2270; J2405

== ENCOUNTER 2019-10-25 02:59 | Emergency (ER) | payer MEDICARE, MEDICAID ==
[~2019-10-25] VITALS: Ht 162.6 cm; Wt 70.5 kg
[2019-10-25] MEDS ORDERED: LORazepam 2 mg/ml vial IM ONE (03:10)
[2019-10-25] MEDS ORDERED: morphine 4 MG/ML inj SYRINge IM ONE (03:10)
[2019-10-25] MEDS ORDERED: ondansetron 4mg rapidly disintigrating tab PO ONE (03:10)
[2019-10-25] MEDS ORDERED: proCHLORperazine 10 MG/2 ml inj IM ONE (04:05)
[2019-10-25 04:12] VITALS: BP 152/99
== END 2019-10-25 04:14 | disposition home or self-care (01) ==
LOC: ER 02:59
DX: G89.29 Other chronic pain (principal); R10.12 Left upper quadrant pain; E78.00 Pure hypercholesterolemia, unspecified; I10 Essential (primary) hypertension; E11.9 Type 2 diabetes mellitus without complications; F41.9 Anxiety disorder, unspecified; Z90.49 Acquired absence of other specified parts of digestive tract; Z90.710 Acquired absence of both cervix and uterus; Z98.890 Other specified postprocedural states; Z98.51 Tubal ligation status; Z79.84 Long term (current) use of oral hypoglycemic drugs; Z79.899 Other long term (current) drug therapy
CPT/HCPCS: 96372; 99283; J0780; J2060; J2270

== ENCOUNTER 2019-10-29 11:29 | Emergency (ER) | payer MEDICARE, MEDICAID ==
[~2019-10-29] VITALS: Ht 162.6 cm; Wt 70.5 kg
[2019-10-29] MEDS ORDERED: ondansetron/PF 4mg/2ml inj IV ONE (12:05)
[2019-10-29] MEDS ORDERED: normal saline 1000ml 1,000 ML IV ONE (12:05)
[2019-10-29] MEDS ORDERED: proCHLORperazine 10 MG/2 ml inj IV ONE (12:05)
[2019-10-29] MEDS ORDERED: labetalol 20mg/4ml (5mg/ml) syringe IV ONE ×2 (13:05→14:25)
[2019-10-29 14:14] LABS: BASOPHILS # (AUTO) 0.1 X10'3 (0-0.2); BASOPHILS % (AUTO) 1.1 % (0-1); EOSINOPHILS # (AUTO) 0.1 X10'3 (0-0.9); EOSINOPHILS % (AUTO) 0.6 % (0-6); HEMATOCRIT 38.4 % (35.0-45.0); HEMOGLOBIN 13.1 g/dl (12.0-16.0); LYMPHOCYTES # (AUTO) 2.1 X10'3 (1.1-4.8); MEAN CORPUSCULAR HEMOGLOBIN 29.9 PG (27.0-31.0); MEAN CORPUSCULAR HGB CONC 34.1 g/dL (33.0-36.5); MEAN CORPUSCULAR VOLUME 87.8 FL (78-98); MEAN PLATELET VOLUME 8.2 FL (7.4-10.4); MONOCYTES # (AUTO) 0.5 X10'3 (0-0.9); MONOCYTES % (AUTO) 6.2 % (2-12); NEUTROPHILS # (AUTO) 5.6 X10'3 (1.8-7.7); NEUTROPHILS % (AUTO) 67.1 % (42-75); PLATELET COUNT 246 X10'3 (140-440); RED BLOOD COUNT 4.37 X10'6 (4.20-5.60); RED CELL DISTRIBUTION WIDTH 13.4 % (11.5-14.5); WHITE BLOOD COUNT 8.4 X10'3 (4.5-11.0)
[2019-10-29] MEDS ORDERED: LORazepam 2 mg/ml vial IV ONE (14:15)
[2019-10-29] MEDS ORDERED: amLODIPine 5mg tablet PO ONE (14:25)
[2019-10-29 14:31] LABS: ALANINE AMINOTRANSFERASE 14 U/L (12-78); ALBUMIN 3.3 G/DL (3.4-5.0); ALBUMIN/GLOBULIN RATIO 1.1 (1.1-1.5); ALKALINE PHOSPHATASE 67 IU/L (46-116); ANION GAP 7 (8-16); ASPARTATE AMINO TRANSFERASE 10 U/L (10-37); BILIRUBIN,TOTAL 0.5 MG/DL (0.1-1.0); BLOOD UREA NITROGEN 10 MG/DL (7-18); BUN/CREATININE RATIO 12.7 (6.6-38.0); CALCIUM 8.1 MG/DL (8.5-10.1); CHLORIDE 105 MMOL/L (99-107); CREATININE 0.79 MG/DL (0.40-0.90); GLUCOSE 108 MG/DL (70-104); POTASSIUM 3.1 MMOL/L (3.5-5.1); SODIUM 141 MMOL/L (135-145); TOTAL CARBON DIOXIDE 28.6 MMOL/L (24-32); TOTAL PROTEIN 6.4 G/DL (6.4-8.2); eGFR 71 ML/MIN
[2019-10-29 14:34] LABS: LIPASE 157 U/L (73-393); TROPONIN I < 0.04 NG/ML (0.0-0.05)
[2019-10-29] MEDS ORDERED: PROC-8 PO (14:54)
[2019-10-29] MEDS ORDERED: ONDA8TAB6 PO (14:54)
[2019-10-29 15:03] LABS: CLARITY,URINE CLEAR (Clear); COLOR,URINE YELLOW (Yellow); GLUCOSE, URINE NEGATIVE (Neg); KETONES,URINE TRACE mg/dl (Neg); LEUKOCYTE ESTERASE ,URINE NEGATIVE (Neg); NITRITES, URINE NEGATIVE (Neg); OCCULT BLOOD,URINE NEGATIVE (Neg); PROTEIN,URINE NEGATIVE (Neg); UA COLLECTION TYPE NON-SPECIFIED; UROBILINOGEN,URINE 0.2 E.U/dL (0.2-1.0)
--- NOTE | 2019-10-29 15:30 | NUR ---
TELEPHONE CALL TO SON, KAE MCKINNEY. SON IS ON HIS WAY HERE FOR DC TRANSPORTATION.
[2019-10-29 15:41] VITALS: BP 196/103
== END 2019-10-29 15:58 | disposition home or self-care (01) ==
LOC: ER 11:29
DX: R11.2 Nausea with vomiting, unspecified (principal); R10.84 Generalized abdominal pain; E78.00 Pure hypercholesterolemia, unspecified; I10 Essential (primary) hypertension; E11.9 Type 2 diabetes mellitus without complications; G89.29 Other chronic pain; F41.9 Anxiety disorder, unspecified; Z90.49 Acquired absence of other specified parts of digestive tract; Z90.710 Acquired absence of both cervix and uterus; Z98.890 Other specified postprocedural states; Z98.51 Tubal ligation status; Z79.84 Long term (current) use of oral hypoglycemic drugs; Z79.899 Other long term (current) drug therapy
CPT/HCPCS: 36415; 74176; 80053; 81003; 83605; 83690; 84484; 85025; 93005; 96361; 96374; 96375; 96376; 99284; J0780; J2060; J2405; J7030; J3490

== ENCOUNTER 2019-11-15 11:44 | Emergency (ER) | payer MEDICARE, MEDICAID ==
[~2019-11-15] VITALS: Ht 162.6 cm; Wt 68.0 kg
[~2019-11-15 11:44] MED LIST changes: +PROC-8 PO
[2019-11-15] MEDS ORDERED: normal saline 1000ML IV soln IVB ONE ×2 (12:05→13:45)
[2019-11-15] MEDS ORDERED: metoclopramide 5 mg/ml inj IV ONE (12:05)
[2019-11-15] MEDS ORDERED: LORazepam 2 mg/ml vial IV ONE (12:05)
[2019-11-15] MEDS ORDERED: diphenhydrAMINE 50 mg/ml inj IV ONE (12:05)
[2019-11-15 12:25] LABS: BASOPHILS # (AUTO) 0.1 X10'3 (0-0.2); BASOPHILS % (AUTO) 0.9 % (0-1); EOSINOPHILS # (AUTO) 0.1 X10'3 (0-0.9); EOSINOPHILS % (AUTO) 1.3 % (0-6); HEMATOCRIT 40.3 % (35.0-45.0); HEMOGLOBIN 13.6 g/dl (12.0-16.0); LYMPHOCYTES # (AUTO) 1.5 X10'3 (1.1-4.8); LYMPHOCYTES % (AUTO) 24.2 % (21-51); MEAN CORPUSCULAR HEMOGLOBIN 29.7 PG (27.0-31.0); MEAN CORPUSCULAR HGB CONC 33.8 g/dL (33.0-36.5); MEAN CORPUSCULAR VOLUME 87.9 FL (78-98); MEAN PLATELET VOLUME 8.2 FL (7.4-10.4); MONOCYTES # (AUTO) 0.4 X10'3 (0-0.9); MONOCYTES % (AUTO) 5.7 % (2-12); NEUTROPHILS # (AUTO) 4.2 X10'3 (1.8-7.7); NEUTROPHILS % (AUTO) 67.9 % (42-75); PLATELET COUNT 270 X10'3 (140-440); RED BLOOD COUNT 4.59 X10'6 (4.20-5.60); RED CELL DISTRIBUTION WIDTH 13.6 % (11.5-14.5); WHITE BLOOD COUNT 6.2 X10'3 (4.5-11.0)
[2019-11-15 12:46] LABS: ALANINE AMINOTRANSFERASE 14 U/L (12-78); ALBUMIN 3.5 G/DL (3.4-5.0); ALBUMIN/GLOBULIN RATIO 0.9 (1.1-1.5); ALKALINE PHOSPHATASE 66 IU/L (46-116); ANION GAP 15 (8-16); ASPARTATE AMINO TRANSFERASE 11 U/L (10-37); BILIRUBIN,TOTAL 0.8 MG/DL (0.1-1.0); BLOOD UREA NITROGEN 10 MG/DL (7-18); BUN/CREATININE RATIO 11.4 (6.6-38.0); CALCIUM 9.3 MG/DL (8.5-10.1); CHLORIDE 102 MMOL/L (99-107); CREATININE 0.88 MG/DL (0.40-0.90); GLUCOSE 100 MG/DL (70-104); LIPASE 58 U/L (73-393); POTASSIUM 3.6 MMOL/L (3.5-5.1); SODIUM 138 MMOL/L (135-145); TOTAL CARBON DIOXIDE 21.1 MMOL/L (24-32); TOTAL PROTEIN 7.5 G/DL (6.4-8.2); eGFR 62 ML/MIN
[2019-11-15] MEDS ORDERED: ONDA4TAB12 PO (13:20)
[2019-11-15 13:30] LABS: CLARITY,URINE CLOUDY (Clear); COLOR,URINE YELLOW (Yellow); GLUCOSE, URINE NEGATIVE (Neg); KETONES,URINE 40 mg/dl (Neg); LEUKOCYTE ESTERASE ,URINE LARGE (Neg); NITRITES, URINE NEGATIVE (Neg); OCCULT BLOOD,URINE TRACE-INTACT (Neg); PROTEIN,URINE NEGATIVE (Neg); UROBILINOGEN,URINE 0.2 E.U/dL (0.2-1.0)
[2019-11-15 13:37] LABS: UA COLLECTION TYPE CLN CATCH MIDSTREAM
[2019-11-15 13:39] LABS: MUCUS STRANDS FEW /LPF (Neg); SQUAMOUS EPITHELIAL CELL,UR MODERATE /LPF (FEW); TRANSITIONAL EPI CELLS,URINE FEW /HPF
[2019-11-15 13:40] LABS: BACTERIA,URINE 4+ /HPF (Neg); RBC,URINE NONE SEEN /HPF (0-2); WBC,URINE TNTC /HPF (0-4)
[2019-11-15] MEDS ORDERED: CefTRIAXone 2gm/D5W 50ml 50 ML IV ONE (13:45)
[2019-11-15] MEDS ORDERED: CEPH500C5 PO (13:45)
[2019-11-15] MEDS ORDERED: haloperidol lactate 5mg/ml inj IM ONE (13:45)
[2019-11-15] MEDS ORDERED: cloNIDine 0.1 mg tablet PO ONE (14:20)
[2019-11-15 14:41] VITALS: BP 185/91
== END 2019-11-15 14:44 | disposition home or self-care (01) ==
LOC: ER 11:44
DX: N39.0 Urinary tract infection, site not specified (principal); R11.2 Nausea with vomiting, unspecified; E78.00 Pure hypercholesterolemia, unspecified; I10 Essential (primary) hypertension; E11.9 Type 2 diabetes mellitus without complications; G89.29 Other chronic pain; F41.9 Anxiety disorder, unspecified; Z90.49 Acquired absence of other specified parts of digestive tract; Z90.710 Acquired absence of both cervix and uterus; Z98.51 Tubal ligation status; Z98.890 Other specified postprocedural states; Z79.84 Long term (current) use of oral hypoglycemic drugs; Z79.899 Other long term (current) drug therapy
CPT/HCPCS: 36415; 80053; 81001; 83690; 85025; 87077; 87088; 87186; 93005; 96361; 96365; 96372; 96375; 99284; J0696; J1200; J1630; J2060; J2765; J7030

== ENCOUNTER 2019-12-05 10:22 | Emergency (ER) | payer MEDICARE, MEDICAID ==
[~2019-12-05] VITALS: Ht 162.6 cm; Wt 68.2 kg
[~2019-12-05 10:22] MED LIST changes: -TRAZ-219 PO; +TRAZ-256 PO
[2019-12-05] MEDS ORDERED: normal saline 1000ML IV soln IVB ONE (11:10)
[2019-12-05] MEDS ORDERED: ondansetron/PF 4mg/2ml inj IV ONE (11:10)
[2019-12-05] MEDS ORDERED: morphine 4 MG/ML inj SYRINge IV ONE (11:10)
[2019-12-05 11:14] LABS: BASOPHILS # (AUTO) 0.1 X10'3 (0-0.2); BASOPHILS % (AUTO) 1.2 % (0-1); EOSINOPHILS # (AUTO) 0.1 X10'3 (0-0.9); EOSINOPHILS % (AUTO) 0.9 % (0-6); HEMOGLOBIN 13.6 g/dl (12.0-16.0); LYMPHOCYTES # (AUTO) 1.5 X10'3 (1.1-4.8); LYMPHOCYTES % (AUTO) 24.1 % (21-51); MEAN CORPUSCULAR HEMOGLOBIN 29.4 PG (27.0-31.0); MEAN CORPUSCULAR VOLUME 86.6 FL (78-98); MEAN PLATELET VOLUME 8.7 FL (7.4-10.4); MONOCYTES # (AUTO) 0.4 X10'3 (0-0.9); MONOCYTES % (AUTO) 6.2 % (2-12); NEUTROPHILS # (AUTO) 4.2 X10'3 (1.8-7.7); NEUTROPHILS % (AUTO) 67.6 % (42-75); PLATELET COUNT 226 X10'3 (140-440); RED BLOOD COUNT 4.62 X10'6 (4.20-5.60); RED CELL DISTRIBUTION WIDTH 14.1 % (11.5-14.5); WHITE BLOOD COUNT 6.2 X10'3 (4.5-11.0)
[2019-12-05] MEDS ORDERED: iohexol 300mg/ml 100ml inj. ONE (11:19)
[2019-12-05 11:27] LABS: ALANINE AMINOTRANSFERASE 9 U/L (12-78); ALBUMIN 3.6 G/DL (3.4-5.0); ALKALINE PHOSPHATASE 69 IU/L (46-116); AMYLASE 37 U/L (25-115); ANION GAP 15 (8-16); ASPARTATE AMINO TRANSFERASE 12 U/L (10-37); BILIRUBIN,TOTAL 1.2 MG/DL (0.1-1.0); BLOOD UREA NITROGEN 13 MG/DL (7-18); CALCIUM 8.8 MG/DL (8.5-10.1); CHLORIDE 99 MMOL/L (99-107); CREATININE 1.08 MG/DL (0.40-0.90); GLUCOSE 106 MG/DL (70-104); LIPASE 65 U/L (73-393); POTASSIUM 3.4 MMOL/L (3.5-5.1); SODIUM 138 MMOL/L (135-145); TOTAL CARBON DIOXIDE 24.4 MMOL/L (24-32); TOTAL PROTEIN 7.2 G/DL (6.4-8.2); eGFR 49 ML/MIN
[2019-12-05 12:34] LABS: CLARITY,URINE CLOUDY (Clear); COLOR,URINE YELLOW (Yellow); GLUCOSE, URINE NEGATIVE (Neg); KETONES,URINE TRACE mg/dl (Neg); LEUKOCYTE ESTERASE ,URINE MODERATE (Neg); NITRITES, URINE NEGATIVE (Neg); OCCULT BLOOD,URINE NEGATIVE (Neg); PROTEIN,URINE TRACE mg/dl (Neg); UA COLLECTION TYPE CLN CATCH MIDSTREAM
[2019-12-05 12:40] LABS: WBC,URINE 30-50 /HPF (0-4)
[2019-12-05 12:41] LABS: BACTERIA,URINE 4+ /HPF (Neg); MUCUS STRANDS NONE SEEN /LPF (Neg); RBC,URINE NONE SEEN /HPF (0-2); RENAL CELLS, URINE FEW /HPF; SQUAMOUS EPITHELIAL CELL,UR MODERATE /LPF (FEW)
[2019-12-05] MEDS ORDERED: CefTRIAXone 2gm/D5W 50ml 50 ML IV SCH (13:05)
[2019-12-05] MEDS ORDERED: CEPH-572 PO (13:06)
[2019-12-05] MEDS ORDERED: POTASSIUM BICARB 20meq eff tab 20 MEQ TABLET.EFF PO ONE (13:10)
--- NOTE | 2019-12-05 13:30 | NUR ---
PT REPORTS STILL FEELING A LITTLE NAUSEATED, CHILD INFORMED, ORDERS TO FOLLOW.
[2019-12-05] MEDS ORDERED: diphenhydrAMINE 50 mg/ml inj IV ONE (13:35)
[2019-12-05] MEDS ORDERED: metoclopramide 5 mg/ml inj IV ONE (13:35)
[2019-12-05] MEDS ORDERED: DIPH25CA83 PO (14:08)
[2019-12-05 14:16] VITALS: BP 205/93
--- NOTE | 2019-12-08 09:33 | NUR ---
called left a message for a name of a pharmacy . pt. needs to stop keflex and start cipro 500mg,po bid x 7 days
== END 2019-12-05 14:36 | disposition home or self-care (01) ==
LOC: ER 10:22
DX: N39.0 Urinary tract infection, site not specified (principal); E87.6 Hypokalemia; R11.2 Nausea with vomiting, unspecified; E78.00 Pure hypercholesterolemia, unspecified; I10 Essential (primary) hypertension; E11.9 Type 2 diabetes mellitus without complications; G89.29 Other chronic pain; F41.9 Anxiety disorder, unspecified; Z90.49 Acquired absence of other specified parts of digestive tract; Z90.710 Acquired absence of both cervix and uterus; Z98.51 Tubal ligation status; Z98.890 Other specified postprocedural states; Z79.84 Long term (current) use of oral hypoglycemic drugs; Z79.899 Other long term (current) drug therapy
CPT/HCPCS: 36415; 74177; 80053; 81001; 82150; 83605; 83690; 85025; 85610; 87077; 87088; 87186; 96361; 96365; 96375; 99284; J0696; J1200; J2270; J2405; J2765; J7030; Q9967

== ENCOUNTER 2019-12-06 18:28 | Emergency (ER) | payer MEDICARE, MEDICAID ==
[~2019-12-06] VITALS: Ht 165.1 cm; Wt 63.0 kg
[~2019-12-06 18:28] MED LIST changes: +CEPH-572 PO; +DIPH25CA83 PO
[2019-12-06 18:31] VITALS: BP 162/92
[2019-12-06] MEDS ORDERED: ondansetron/PF 4mg/2ml inj IV ONE (19:25)
[2019-12-06] MEDS ORDERED: morphine 4 MG/ML inj SYRINge IV ONE (19:25)
== END 2019-12-06 19:45 | disposition left against medical advice (07) ==
LOC: ER 18:28
DX: R10.84 Generalized abdominal pain (principal); G20 Parkinson's disease; E78.00 Pure hypercholesterolemia, unspecified; I10 Essential (primary) hypertension; E11.9 Type 2 diabetes mellitus without complications; G89.29 Other chronic pain; F41.9 Anxiety disorder, unspecified; Z90.49 Acquired absence of other specified parts of digestive tract; Z90.710 Acquired absence of both cervix and uterus; Z98.51 Tubal ligation status; Z98.890 Other specified postprocedural states; Z79.2 Long term (current) use of antibiotics; Z79.899 Other long term (current) drug therapy
CPT/HCPCS: 99283

== ENCOUNTER 2019-12-21 07:43 | Emergency (ER) | payer MEDICARE, MEDICAID ==
[~2019-12-21] VITALS: Ht 152.4 cm; Wt 65.0 kg
[~2019-12-21 07:43] MED LIST changes: -CEPH-572 PO
[2019-12-21] MEDS ORDERED: normal saline 1000ML IV soln IVB ONE (08:15)
[2019-12-21] MEDS ORDERED: proCHLORperazine 10 MG/2 ml inj IV ONE (08:15)
[2019-12-21] MEDS ORDERED: metoclopramide 5 mg/ml inj IV ONE (09:30)
[2019-12-21] MEDS ORDERED: LORazepam 2 mg/ml vial IV ONE (09:35)
[2019-12-21] MEDS ORDERED: haloperidol lactate 5mg/ml inj IM ONE (09:35)
[2019-12-21] MEDS ORDERED: ONDA8TAB6 PO (10:27)
[2019-12-21] MEDS ORDERED: PHE25R PR (10:27)
--- NOTE | 2019-12-21 10:31 | NUR ---
TELEPHONE CALL TO PATIENT'S SON, KAE AT [phone]. KAE WILL BE COMING HERE TO PROVIDE TRANSPORTATION AT [place].
[2019-12-21 11:01] VITALS: BP 196/91
== END 2019-12-21 11:03 | disposition home or self-care (01) ==
LOC: ER 07:43
DX: R11.2 Nausea with vomiting, unspecified (principal); G20 Parkinson's disease; E78.00 Pure hypercholesterolemia, unspecified; I10 Essential (primary) hypertension; E11.9 Type 2 diabetes mellitus without complications; G89.29 Other chronic pain; F41.9 Anxiety disorder, unspecified; Z90.49 Acquired absence of other specified parts of digestive tract; Z98.51 Tubal ligation status; Z90.710 Acquired absence of both cervix and uterus; Z98.890 Other specified postprocedural states; Z79.2 Long term (current) use of antibiotics; Z79.899 Other long term (current) drug therapy; Z79.84 Long term (current) use of oral hypoglycemic drugs
CPT/HCPCS: 93005; 96361; 96372; 96374; 96375; 99284; J0780; J1630; J2060; J2765; J7030

== ENCOUNTER 2019-12-25 17:35 | Emergency (ER) | payer MEDICARE, MEDICAID ==
[~2019-12-25] VITALS: Ht 162.6 cm; Wt 65.0 kg
[~2019-12-25 17:35] MED LIST changes: +PHE25R PR
[2019-12-25] MEDS ORDERED: haloperidol lactate 5mg/ml inj IM ONE (18:40)
[2019-12-25] MEDS ORDERED: LORazepam 2 mg/ml vial IM ONE (18:40)
[2019-12-25 19:49] VITALS: BP 154/86
--- NOTE | 2019-12-25 20:07 | NUR ---
pt was able to drink her water with no issues. Pt able to pivor on her own to [facility] [place]. she states she uses a walker at home. her son is on her way to pick her up. No changes with her ambulation
== END 2019-12-25 20:22 | disposition home or self-care (01) ==
LOC: ER 17:35
DX: R11.2 Nausea with vomiting, unspecified (principal); R10.10 Upper abdominal pain, unspecified; E78.00 Pure hypercholesterolemia, unspecified; I10 Essential (primary) hypertension; E11.9 Type 2 diabetes mellitus without complications; G89.29 Other chronic pain; F41.9 Anxiety disorder, unspecified; Z90.49 Acquired absence of other specified parts of digestive tract; Z90.710 Acquired absence of both cervix and uterus; Z98.890 Other specified postprocedural states; Z79.2 Long term (current) use of antibiotics; Z79.899 Other long term (current) drug therapy
CPT/HCPCS: 93005; 96372; 99283; J1630; J2060

== ENCOUNTER 2019-12-26 12:01 | Emergency (ER) | payer MEDICARE, MEDICAID ==
[~2019-12-26] VITALS: Ht 162.6 cm; Wt 65.0 kg
--- NOTE | 2019-12-26 12:12 | NUR ---
INSTRUCT PT TO TAKE HER LISINOPRIL REGULARLY ORDERED. AND TO HAVE HER SON HELP HER TO REMEMBER TO TAKE IT. PT STATES SHE FORGETS TO TAKE IT.
[2019-12-26] MEDS ORDERED: famotidine 20mg tablet PO ONE (12:45)
[2019-12-26] MEDS ORDERED: LORazepam 2 mg/ml vial IM ONE (12:45)
[2019-12-26] MEDS ORDERED: mag hydrox/Alum hydrox/simeth 30ml oral suspension PO ONE (12:45)
[2019-12-26 13:41] VITALS: BP 168/80
== END 2019-12-26 13:43 | disposition home or self-care (01) ==
LOC: ER 12:01
DX: R10.84 Generalized abdominal pain (principal); R11.2 Nausea with vomiting, unspecified; E78.00 Pure hypercholesterolemia, unspecified; I10 Essential (primary) hypertension; E11.9 Type 2 diabetes mellitus without complications; G89.29 Other chronic pain; Z90.49 Acquired absence of other specified parts of digestive tract; Z90.710 Acquired absence of both cervix and uterus; Z98.890 Other specified postprocedural states; Z98.51 Tubal ligation status; Z79.899 Other long term (current) drug therapy
CPT/HCPCS: 74018; 96372; 99283; J2060

== ENCOUNTER 2020-01-04 14:45 | Emergency (ER) | payer MEDICARE, MEDICAID ==
--- NOTE | 2020-01-04 15:59 | NUR ---
SECOND CALL NOT IN LOBBYY
--- NOTE | 2020-01-04 16:10 | NUR ---
THIRD CALL NOT IN LOBBY
== END 2020-01-04 16:11 | disposition left against medical advice (07) ==
LOC: ER 14:45
DX: R10.9 Unspecified abdominal pain (principal); Z53.21 Procedure and treatment not carried out due to patient leaving prior to being seen by health care provider

== ENCOUNTER 2020-03-11 14:01 | Emergency (ER) | payer MEDICARE, MEDICAID ==
[~2020-03-11] VITALS: Ht 162.6 cm; Wt 68.2 kg
[2020-03-11] MEDS ORDERED: LORazepam 2 mg/ml vial IV ONE (14:05)
[2020-03-11] MEDS ORDERED: normal saline 1000ML IV soln IVB ONE ×2 (14:05)
[2020-03-11] MEDS ORDERED: diphenhydrAMINE 50 mg/ml inj IV ONE (14:05)
[2020-03-11] MEDS ORDERED: metoclopramide 5 mg/ml inj IV ONE (14:05)
[2020-03-11 14:20] LABS: BASOPHILS # (AUTO) 0.1 X10'3 (0-0.2); BASOPHILS % (AUTO) 0.4 % (0-1); EOSINOPHILS % (AUTO) 0 % (0-6); HEMATOCRIT 41.7 % (35.0-45.0); HEMOGLOBIN 13.9 g/dl (12.0-16.0); LYMPHOCYTES # (AUTO) 1.2 X10'3 (1.1-4.8); LYMPHOCYTES % (AUTO) 9.3 % (21-51); MEAN CORPUSCULAR HEMOGLOBIN 29.5 PG (27.0-31.0); MEAN CORPUSCULAR HGB CONC 33.4 g/dL (33.0-36.5); MEAN CORPUSCULAR VOLUME 88.2 FL (78-98); MONOCYTES # (AUTO) 0.3 X10'3 (0-0.9); MONOCYTES % (AUTO) 2.1 % (2-12); NEUTROPHILS # (AUTO) 11.5 X10'3 (1.8-7.7); NEUTROPHILS % (AUTO) 88.2 % (42-75); PLATELET COUNT 319 X10'3 (140-440); RED BLOOD COUNT 4.72 X10'6 (4.20-5.60); RED CELL DISTRIBUTION WIDTH 14.4 % (11.5-14.5)
[2020-03-11 14:36] LABS: ALANINE AMINOTRANSFERASE 8 U/L (12-78); ALBUMIN 3.8 G/DL (3.4-5.0); ALKALINE PHOSPHATASE 88 IU/L (46-116); ANION GAP 16 (8-16); ASPARTATE AMINO TRANSFERASE 12 U/L (10-37); BILIRUBIN,TOTAL 0.6 MG/DL (0.1-1.0); BLOOD UREA NITROGEN 24 MG/DL (7-18); CALCIUM 9.7 MG/DL (8.5-10.1); CHLORIDE 99 MMOL/L (99-107); GLUCOSE 225 MG/DL (70-104); LIPASE 75 U/L (73-393); POTASSIUM 3.2 MMOL/L (3.5-5.1); SODIUM 138 MMOL/L (135-145); TOTAL CARBON DIOXIDE 23.5 MMOL/L (24-32); TOTAL PROTEIN 7.8 G/DL (6.4-8.2); eGFR 44 ML/MIN
[2020-03-11] MEDS ORDERED: POTA20TA19 PO (15:33)
[2020-03-11] MEDS ORDERED: ONDA4TAB12 PO (15:33)
[2020-03-11 15:52] VITALS: BP 183/103
--- NOTE | 2020-03-11 15:52 | NUR ---
PT GAVE UA, SECOND NS BOLUS STARTED, VS UPDATED. WILL CALL SON FOR TRANSPORT
--- NOTE | 2020-03-11 15:57 | NUR ---
son Rigo called to pick pt up he will be here around [phone]
[2020-03-11 16:07] LABS: CLARITY,URINE CLOUDY (Clear); COLOR,URINE YELLOW (Yellow); GLUCOSE, URINE NEGATIVE (Neg); KETONES,URINE TRACE mg/dl (Neg); LEUKOCYTE ESTERASE ,URINE TRACE (Neg); NITRITES, URINE NEGATIVE (Neg); OCCULT BLOOD,URINE SMALL (Neg); PH,URINE 5.5 (4.8-8.0); PROTEIN,URINE 100 mg/dl (Neg); UROBILINOGEN,URINE 0.2 E.U/dL (0.2-1.0)
[2020-03-11 16:08] LABS: UA COLLECTION TYPE CLN CATCH MIDSTREAM
[2020-03-11 16:12] LABS: BACTERIA,URINE 4+ /HPF (Neg); MUCUS STRANDS FEW /LPF (Neg); RBC,URINE 0-2 /HPF (0-2); SQUAMOUS EPITHELIAL CELL,UR MANY /LPF (FEW); WBC,URINE 20-30 /HPF (0-4)
--- NOTE | 2020-03-11 16:12 | NUR ---
lab called ua is rejected for culturals, will let provider know
[2020-03-11] MEDS ORDERED: CEPH500C5 PO (16:15)
== END 2020-03-11 17:18 | disposition home or self-care (01) ==
LOC: ER 14:02
DX: E87.6 Hypokalemia (principal); R11.2 Nausea with vomiting, unspecified; G20 Parkinson's disease; E78.00 Pure hypercholesterolemia, unspecified; I10 Essential (primary) hypertension; E11.9 Type 2 diabetes mellitus without complications; G89.29 Other chronic pain; F41.9 Anxiety disorder, unspecified; Z90.49 Acquired absence of other specified parts of digestive tract; Z90.710 Acquired absence of both cervix and uterus; Z98.890 Other specified postprocedural states; Z98.51 Tubal ligation status; Z79.2 Long term (current) use of antibiotics; Z79.899 Other long term (current) drug therapy
CPT/HCPCS: 36415; 80053; 81001; 83690; 85025; 96361; 96374; 96375; 99284; J1200; J2060; J2765; J7030; 96360; 96372

== ENCOUNTER 2020-04-02 08:58 | Emergency (ER) | payer MEDICARE, MEDICAID ==
[~2020-04-02] VITALS: Ht 162.6 cm; Wt 63.6 kg
[~2020-04-02 08:58] MED LIST changes: +POTA20TA19 PO
[2020-04-02] MEDS ORDERED: mag hydrox/Alum hydrox/simeth 30ml oral suspension PO ONE (09:25)
[2020-04-02] MEDS ORDERED: normal saline 1000ML IV soln IVB ONE (09:25)
[2020-04-02] MEDS ORDERED: LIDOcaine Viscous 15ml cup TP ONE (09:25)
[2020-04-02 09:59] LABS: ALBUMIN 3.7 G/DL (3.4-5.0); ALKALINE PHOSPHATASE 75 IU/L (46-116); ANION GAP 13 (8-16); ASPARTATE AMINO TRANSFERASE 9 U/L (10-37); BILIRUBIN,TOTAL 0.7 MG/DL (0.1-1.0); BLOOD UREA NITROGEN 20 MG/DL (7-18); BUN/CREATININE RATIO 18.5 (6.6-38.0); CHLORIDE 115 MMOL/L (99-107); CREATININE 1.08 MG/DL (0.40-0.90); GLUCOSE 126 MG/DL (70-104); POTASSIUM 4.1 MMOL/L (3.5-5.1); SODIUM 154 MMOL/L (135-145); TOTAL CARBON DIOXIDE 26.4 MMOL/L (24-32); TOTAL PROTEIN 7.5 G/DL (6.4-8.2); eGFR 49 ML/MIN
[2020-04-02 10:00] LABS: ALANINE AMINOTRANSFERASE < 6 U/L (12-78)
[2020-04-02] MEDS ORDERED: cloNIDine 0.1 mg tablet PO ONE ×2 (10:00→10:50)
[2020-04-02 10:01] LABS: BASOPHILS % (AUTO) 0.5 % (0-1); EOSINOPHILS # (AUTO) 0.1 X10'3 (0-0.9); EOSINOPHILS % (AUTO) 1.1 % (0-6); HEMOGLOBIN 13.5 g/dl (12.0-16.0); LYMPHOCYTES # (AUTO) 1.7 X10'3 (1.1-4.8); LYMPHOCYTES % (AUTO) 26.8 % (21-51); MEAN CORPUSCULAR HEMOGLOBIN 30.3 PG (27.0-31.0); MEAN CORPUSCULAR HGB CONC 33.7 g/dL (33.0-36.5); MEAN CORPUSCULAR VOLUME 90.1 FL (78-98); MEAN PLATELET VOLUME 8.6 FL (7.4-10.4); MONOCYTES # (AUTO) 0.4 X10'3 (0-0.9); MONOCYTES % (AUTO) 5.9 % (2-12); NEUTROPHILS # (AUTO) 4.1 X10'3 (1.8-7.7); NEUTROPHILS % (AUTO) 65.7 % (42-75); PLATELET COUNT 258 X10'3 (140-440); RED BLOOD COUNT 4.44 X10'6 (4.20-5.60); RED CELL DISTRIBUTION WIDTH 14.1 % (11.5-14.5); WHITE BLOOD COUNT 6.2 X10'3 (4.5-11.0)
[2020-04-02] MEDS ORDERED: LORazepam 1 MG tablet PO ONE (10:50)
[2020-04-02 10:52] LABS: CLARITY,URINE CLOUDY (Clear); COLOR,URINE YELLOW (Yellow); GLUCOSE, URINE NEGATIVE (Neg); KETONES,URINE TRACE mg/dl (Neg); LEUKOCYTE ESTERASE ,URINE MODERATE (Neg); NITRITES, URINE NEGATIVE (Neg); OCCULT BLOOD,URINE NEGATIVE (Neg); PROTEIN,URINE TRACE mg/dl (Neg); UROBILINOGEN,URINE 0.2 E.U/dL (0.2-1.0)
[2020-04-02 10:57] LABS: UA COLLECTION TYPE CLN CATCH MIDSTREAM
[2020-04-02 11:05] LABS: AMORPHOUS PHOSPHATES 1+; BACTERIA,URINE 3+ /HPF (Neg); SQUAMOUS EPITHELIAL CELL,UR MANY /LPF (FEW)
[2020-04-02 11:06] LABS: RENAL CELLS, URINE MODERATE /HPF
[2020-04-02 11:07] LABS: RBC,URINE 0-2 /HPF (0-2); WBC CLUMPS,URINE FEW /HPF (NEGATIVE); WBC,URINE TNTC /HPF (0-4)
[2020-04-02 11:25] VITALS: BP 150/89
== END 2020-04-02 12:07 | disposition home or self-care (01) ==
LOC: ER 08:58
DX: R10.9 Unspecified abdominal pain (principal); R11.2 Nausea with vomiting, unspecified; E78.00 Pure hypercholesterolemia, unspecified; I10 Essential (primary) hypertension; E11.9 Type 2 diabetes mellitus without complications; G89.29 Other chronic pain; F41.9 Anxiety disorder, unspecified; Z87.440 Personal history of urinary (tract) infections; Z90.49 Acquired absence of other specified parts of digestive tract; Z90.89 Acquired absence of other organs; Z90.710 Acquired absence of both cervix and uterus; Z98.51 Tubal ligation status; Z98.890 Other specified postprocedural states; Z79.2 Long term (current) use of antibiotics; Z79.899 Other long term (current) drug therapy
CPT/HCPCS: 36415; 71045; 80053; 81001; 83735; 85025; 96360; 99284; J7030

== ENCOUNTER 2020-04-04 07:54 | Emergency (ER) | payer MEDICARE, MEDICAID ==
[~2020-04-04] VITALS: Ht 162.6 cm; Wt 63.6 kg
[2020-04-04 08:29] LABS: BASOPHILS # (AUTO) 0.1 X10'3 (0-0.2); BASOPHILS % (AUTO) 0.9 % (0-1); EOSINOPHILS # (AUTO) 0.2 X10'3 (0-0.9); EOSINOPHILS % (AUTO) 2.6 % (0-6); HEMATOCRIT 39.2 % (35.0-45.0); HEMOGLOBIN 13.1 g/dl (12.0-16.0); LYMPHOCYTES # (AUTO) 2.5 X10'3 (1.1-4.8); LYMPHOCYTES % (AUTO) 34.2 % (21-51); MEAN CORPUSCULAR HEMOGLOBIN 29.9 PG (27.0-31.0); MEAN CORPUSCULAR HGB CONC 33.4 g/dL (33.0-36.5); MEAN CORPUSCULAR VOLUME 89.4 FL (78-98); MEAN PLATELET VOLUME 8.9 FL (7.4-10.4); MONOCYTES # (AUTO) 0.5 X10'3 (0-0.9); MONOCYTES % (AUTO) 7.1 % (2-12); NEUTROPHILS % (AUTO) 55.2 % (42-75); PLATELET COUNT 248 X10'3 (140-440); RED BLOOD COUNT 4.38 X10'6 (4.20-5.60); RED CELL DISTRIBUTION WIDTH 13.8 % (11.5-14.5); WHITE BLOOD COUNT 7.2 X10'3 (4.5-11.0)
[2020-04-04 08:32] LABS: URINE HCG NEGATIVE (NEG)
[2020-04-04 08:43] LABS: ALANINE AMINOTRANSFERASE < 6 U/L (12-78); ALBUMIN 3.7 G/DL (3.4-5.0); ALKALINE PHOSPHATASE 72 IU/L (46-116); ANION GAP 10 (8-16); ASPARTATE AMINO TRANSFERASE 9 U/L (10-37); BILIRUBIN,TOTAL 0.6 MG/DL (0.1-1.0); BLOOD UREA NITROGEN 20 MG/DL (7-18); BUN/CREATININE RATIO 21.7 (6.6-38.0); CALCIUM 8.8 MG/DL (8.5-10.1); CHLORIDE 107 MMOL/L (99-107); CREATININE 0.92 MG/DL (0.40-0.90); GLUCOSE 121 MG/DL (70-104); LIPASE 148 U/L (73-393); POTASSIUM 3.4 MMOL/L (3.5-5.1); SODIUM 141 MMOL/L (135-145); TOTAL CARBON DIOXIDE 23.9 MMOL/L (24-32); TOTAL PROTEIN 7.3 G/DL (6.4-8.2); eGFR 59 ML/MIN
[2020-04-04] MEDS ORDERED: diphenhydrAMINE 50 mg/ml inj IV ONE (08:50)
[2020-04-04] MEDS ORDERED: normal saline 1000ml 1,000 ML IV ONE (08:50)
[2020-04-04] MEDS ORDERED: metoclopramide 5 mg/ml inj IV ONE (08:50)
[2020-04-04] MEDS ORDERED: LORazepam 2 mg/ml vial IV ONE (08:50)
[2020-04-04 09:10] LABS: TROPONIN I < 0.04 NG/ML (0.0-0.05)
[2020-04-04] MEDS ORDERED: metoprolol tartrate 50mg tablet PO ONE (09:50)
[2020-04-04] MEDS ORDERED: ONDA8TAB6 PO (09:51)
--- NOTE | 2020-04-04 09:55 | NUR ---
Dr Marinelli made aware BP 210/127, to enter medication order (see emar).
[2020-04-04 10:21] VITALS: BP 210/127
== END 2020-04-04 10:23 | disposition home or self-care (01) ==
LOC: ER 07:55
DX: R11.2 Nausea with vomiting, unspecified (principal); R10.84 Generalized abdominal pain; E78.00 Pure hypercholesterolemia, unspecified; I10 Essential (primary) hypertension; E11.9 Type 2 diabetes mellitus without complications; G89.29 Other chronic pain; F41.9 Anxiety disorder, unspecified; Z87.440 Personal history of urinary (tract) infections; Z90.89 Acquired absence of other organs; Z90.49 Acquired absence of other specified parts of digestive tract; Z90.710 Acquired absence of both cervix and uterus; Z98.51 Tubal ligation status; Z98.890 Other specified postprocedural states; Z79.2 Long term (current) use of antibiotics; Z79.899 Other long term (current) drug therapy
CPT/HCPCS: 36415; 80053; 81025; 83690; 84484; 85025; 96361; 96374; 96375; 99284; J1200; J2060; J2765; J7030

== ENCOUNTER 2020-04-10 11:56 | Emergency (ER) | payer MEDICARE, MEDICAID ==
[~2020-04-10] VITALS: Ht 162.6 cm; Wt 65.9 kg
--- NOTE | 2020-04-10 13:24 | NUR ---
Protocol not ordered as pt has been here twice in the past week and had complete workups.
[2020-04-10] MEDS ORDERED: normal saline 1000ML IV soln IVB ONE (13:50)
[2020-04-10] MEDS ORDERED: ondansetron/PF 4mg/2ml inj IV ONE (13:50)
[2020-04-10] MEDS ORDERED: pantoprazole 40 MG vial IV ONE (13:50)
[2020-04-10] MEDS ORDERED: ONDA8TAB13 PO (14:02)
[2020-04-10 14:14] LABS: BASOPHILS # (AUTO) 0.1 X10'3 (0-0.2); BASOPHILS % (AUTO) 0.9 % (0-1); EOSINOPHILS # (AUTO) 0.2 X10'3 (0-0.9); EOSINOPHILS % (AUTO) 2.3 % (0-6); HEMATOCRIT 38.3 % (35.0-45.0); HEMOGLOBIN 12.7 g/dl (12.0-16.0); LYMPHOCYTES # (AUTO) 2.7 X10'3 (1.1-4.8); LYMPHOCYTES % (AUTO) 32.2 % (21-51); MEAN CORPUSCULAR HEMOGLOBIN 29.1 PG (27.0-31.0); MEAN CORPUSCULAR HGB CONC 33.1 g/dL (33.0-36.5); MEAN CORPUSCULAR VOLUME 87.9 FL (78-98); MEAN PLATELET VOLUME 8.8 FL (7.4-10.4); MONOCYTES # (AUTO) 0.6 X10'3 (0-0.9); MONOCYTES % (AUTO) 7.2 % (2-12); NEUTROPHILS # (AUTO) 4.8 X10'3 (1.8-7.7); NEUTROPHILS % (AUTO) 57.4 % (42-75); PLATELET COUNT 251 X10'3 (140-440); RED BLOOD COUNT 4.36 X10'6 (4.20-5.60); RED CELL DISTRIBUTION WIDTH 13.5 % (11.5-14.5); WHITE BLOOD COUNT 8.4 X10'3 (4.5-11.0)
[2020-04-10 14:17] LABS: CLARITY,URINE CLOUDY (Clear); COLOR,URINE YELLOW (Yellow); GLUCOSE, URINE NEGATIVE (Neg); KETONES,URINE TRACE mg/dl (Neg); LEUKOCYTE ESTERASE ,URINE TRACE (Neg); NITRITES, URINE NEGATIVE (Neg); OCCULT BLOOD,URINE NEGATIVE (Neg); PROTEIN,URINE NEGATIVE (Neg)
[2020-04-10 14:20] LABS: UA COLLECTION TYPE CLN CATCH MIDSTREAM
[2020-04-10 14:27] LABS: ALBUMIN 3.4 G/DL (3.4-5.0); ALKALINE PHOSPHATASE 71 IU/L (46-116); ANION GAP 13 (8-16); ASPARTATE AMINO TRANSFERASE 11 U/L (10-37); BILIRUBIN,TOTAL 0.5 MG/DL (0.1-1.0); BLOOD UREA NITROGEN 24 MG/DL (7-18); BUN/CREATININE RATIO 24.7 (6.6-38.0); CALCIUM 8.5 MG/DL (8.5-10.1); CHLORIDE 105 MMOL/L (99-107); CREATININE 0.97 MG/DL (0.40-0.90); GLUCOSE 97 MG/DL (70-104); LIPASE 140 U/L (73-393); POTASSIUM 3.4 MMOL/L (3.5-5.1); SODIUM 140 MMOL/L (135-145); TOTAL PROTEIN 6.9 G/DL (6.4-8.2); eGFR 56 ML/MIN
[2020-04-10 14:31] LABS: ALANINE AMINOTRANSFERASE < 6 U/L (12-78)
[2020-04-10 14:39] LABS: BACTERIA,URINE 4+ /HPF (Neg); RBC,URINE NONE SEEN /HPF (0-2); SQUAMOUS EPITHELIAL CELL,UR MODERATE /LPF (FEW)
[2020-04-10 14:40] LABS: MUCUS STRANDS FEW /LPF (Neg); TRANSITIONAL EPI CELLS,URINE FEW /HPF
--- NOTE | 2020-04-10 15:05 | NUR ---
Pt's BP continues to be high. Shantelle CUSTOMER RESOLUTION SPECIALIST aware and will place orders.
[2020-04-10] MEDS ORDERED: metoprolol tartrate 50mg tablet PO ONE (15:55)
[2020-04-10] MEDS ORDERED: hyDRALAzine 10mg tablet PO ONE (17:05)
[2020-04-10] MEDS ORDERED: CEPH500C5 PO (17:39)
--- NOTE | 2020-04-10 18:01 | NUR ---
SUPERINTENDENT MARINE OIL TERMINAL Camron made aware of BP 218/90, per SUPERINTENDENT MARINE OIL TERMINAL repeat BP in 20 min. Primary RN Marilee made aware.
--- NOTE | 2020-04-10 18:33 | NUR ---
Shantelle, CONSUMER LENDER at bedside educating pt on need for her to take her BP meds and the effects it can have on her body when she doesn't take them.
[2020-04-10 18:47] VITALS: BP 206/90
[2020-04-21] MEDS ORDERED: LEVE250T PO (11:47)
== END 2020-04-10 18:50 | disposition home or self-care (01) ==
LOC: ER 11:57
DX: R10.84 Generalized abdominal pain (principal); I10 Essential (primary) hypertension; R11.2 Nausea with vomiting, unspecified; G20 Parkinson's disease; E78.00 Pure hypercholesterolemia, unspecified; E11.9 Type 2 diabetes mellitus without complications; G89.29 Other chronic pain; F41.9 Anxiety disorder, unspecified; Z90.49 Acquired absence of other specified parts of digestive tract; Z90.710 Acquired absence of both cervix and uterus; Z98.51 Tubal ligation status; Z98.890 Other specified postprocedural states; Z79.899 Other long term (current) drug therapy
CPT/HCPCS: 36415; 71045; 80053; 81001; 83690; 84484; 85025; 87077; 87088; 87186; 93005; 96361; 96374; 96375; 99285; C9113; J2405; J7030

== ENCOUNTER 2020-04-16 06:29 | Emergency (ER) | payer MEDICARE, MEDICAID ==
[~2020-04-16] VITALS: Ht 162.6 cm; Wt 65.0 kg
[~2020-04-16 06:29] MED LIST changes: -POTA20TA19 PO
[2020-04-16] MEDS ORDERED: ondansetron/PF 4mg/2ml inj IV ONE (06:35)
[2020-04-16] MEDS ORDERED: normal saline 1000ML IV soln IVB ONE (06:35)
[2020-04-16 07:25] LABS: BASOPHILS % (AUTO) 0.8 % (0-1); EOSINOPHILS # (AUTO) 0.2 X10'3 (0-0.9); EOSINOPHILS % (AUTO) 3.3 % (0-6); HEMATOCRIT 35.1 % (35.0-45.0); HEMOGLOBIN 11.8 g/dl (12.0-16.0); LYMPHOCYTES % (AUTO) 36.1 % (21-51); MEAN CORPUSCULAR HEMOGLOBIN 29.9 PG (27.0-31.0); MEAN CORPUSCULAR HGB CONC 33.7 g/dL (33.0-36.5); MEAN CORPUSCULAR VOLUME 88.5 FL (78-98); MEAN PLATELET VOLUME 8.9 FL (7.4-10.4); MONOCYTES # (AUTO) 0.4 X10'3 (0-0.9); MONOCYTES % (AUTO) 6.9 % (2-12); NEUTROPHILS % (AUTO) 52.9 % (42-75); PLATELET COUNT 237 X10'3 (140-440); RED BLOOD COUNT 3.96 X10'6 (4.20-5.60); RED CELL DISTRIBUTION WIDTH 13.4 % (11.5-14.5); WHITE BLOOD COUNT 5.6 X10'3 (4.5-11.0)
[2020-04-16 07:30] LABS: CLARITY,URINE SLIGHTLY CLOUDY (Clear); COLOR,URINE STRAW (Yellow); GLUCOSE, URINE NEGATIVE (Neg); KETONES,URINE NEGATIVE (Neg); LEUKOCYTE ESTERASE ,URINE SMALL (Neg); NITRITES, URINE NEGATIVE (Neg); OCCULT BLOOD,URINE NEGATIVE (Neg); PH,URINE 6.5 (4.8-8.0); PROTEIN,URINE NEGATIVE (Neg); UROBILINOGEN,URINE 0.2 E.U/dL (0.2-1.0)
[2020-04-16 07:32] LABS: UA COLLECTION TYPE CLN CATCH MIDSTREAM
[2020-04-16 07:36] LABS: BACTERIA,URINE 4+ /HPF (Neg); MUCUS STRANDS NONE SEEN /LPF (Neg); RBC,URINE NONE SEEN /HPF (0-2); RENAL CELLS, URINE FEW /HPF; SQUAMOUS EPITHELIAL CELL,UR FEW /LPF (FEW); WBC CLUMPS,URINE FEW /HPF (NEGATIVE)
[2020-04-16 07:36] LABS: ALKALINE PHOSPHATASE 67 IU/L (46-116); ANION GAP 9 (8-16); ASPARTATE AMINO TRANSFERASE 8 U/L (10-37); BILIRUBIN,TOTAL 0.5 MG/DL (0.1-1.0); BLOOD UREA NITROGEN 19 MG/DL (7-18); BUN/CREATININE RATIO 23.8 (6.6-38.0); CALCIUM 7.7 MG/DL (8.5-10.1); CHLORIDE 108 MMOL/L (99-107); GLUCOSE 103 MG/DL (70-104); POTASSIUM 3.2 MMOL/L (3.5-5.1); SODIUM 142 MMOL/L (135-145); TOTAL CARBON DIOXIDE 24.7 MMOL/L (24-32); TOTAL PROTEIN 6.1 G/DL (6.4-8.2); eGFR 70 ML/MIN
[2020-04-16 07:39] LABS: ALANINE AMINOTRANSFERASE < 6 U/L (12-78)
[2020-04-16 07:41] LABS: LIPASE 118 U/L (73-393); MAGNESIUM 1.6 MG/DL (1.5-2.4)
[2020-04-16] MEDS ORDERED: potassium Cl 20 mEq SR tablet PO STA (07:47)
[2020-04-16] MEDS ORDERED: CefTRIAXone 2gm/D5W 50ml 50 ML IV ONE (07:50)
[2020-04-16 07:52] LABS: URINE AMPHETAMINE SCREEN NEGATIVE (Neg); URINE BARBITUATE SCREEN NEGATIVE (Neg); URINE BENZODIAZEPINES SCREEN POSITIVE (Neg); URINE CANNABINOID SCREEN NEGATIVE (Neg); URINE COCAINE SCREEN NEGATIVE (Neg); URINE METHADONE SCREEN NEGATIVE (Neg); URINE OPIATE SCREEN NEGATIVE (Neg); URINE PHENCYCLIDINE SCREEN NEGATIVE (Neg)
[2020-04-16] MEDS ORDERED: proCHLORperazine 10 MG/2 ml inj IV ONE (08:25)
[2020-04-16] MEDS ORDERED: levoFLOXACIN-Levaquin 750MG/D5 150 ML IV ONE (09:15)
[2020-04-16] MEDS ORDERED: ONDA4TAB6 PO (09:50)
[2020-04-16] MEDS ORDERED: SULF1TAB49 PO (09:50)
[2020-04-16 11:20] VITALS: BP 202/91
[2020-04-21] MEDS ORDERED: LEVE250T PO (11:47)
== END 2020-04-16 11:45 | disposition home or self-care (01) ==
LOC: ER 06:30
DX: K29.70 Gastritis, unspecified, without bleeding (principal); E87.6 Hypokalemia; N39.0 Urinary tract infection, site not specified; I10 Essential (primary) hypertension; R11.2 Nausea with vomiting, unspecified; E78.00 Pure hypercholesterolemia, unspecified; E11.9 Type 2 diabetes mellitus without complications; G89.29 Other chronic pain; Z90.49 Acquired absence of other specified parts of digestive tract; Z90.710 Acquired absence of both cervix and uterus; Z98.51 Tubal ligation status; Z98.890 Other specified postprocedural states; Z79.899 Other long term (current) drug therapy
CPT/HCPCS: 36415; 74176; 80053; 80305; 81001; 83690; 83735; 84484; 85025; 87077; 87088; 87186; 93005; 96361; 96365; 96367; 96375; 99285; J0696; J0780; J1956; J2405; J7030

== ENCOUNTER 2020-04-17 09:36 | Emergency (ER) | payer MEDICARE, MEDICAID ==
[~2020-04-17] VITALS: Ht 162.6 cm; Wt 65.9 kg
[~2020-04-17 09:36] MED LIST changes: +SULF1TAB49 PO
[2020-04-17 11:15] VITALS: BP 145/79
[2020-04-17] MEDS ORDERED: ondansetron 4mg rapidly disintigrating tab PO ONE ×2 (11:40)
[2020-04-17] MEDS ORDERED: acetaminophen 325mg tablet PO ONE ×2 (11:40)
[2020-04-21] MEDS ORDERED: LEVE250T PO (11:47)
== END 2020-04-17 12:04 | disposition home or self-care (01) ==
LOC: ER 09:36
DX: N39.0 Urinary tract infection, site not specified (principal); R10.30 Lower abdominal pain, unspecified; G20 Parkinson's disease; E78.00 Pure hypercholesterolemia, unspecified; I10 Essential (primary) hypertension; E11.9 Type 2 diabetes mellitus without complications; G89.29 Other chronic pain; F41.9 Anxiety disorder, unspecified; Z90.49 Acquired absence of other specified parts of digestive tract; Z90.710 Acquired absence of both cervix and uterus; Z98.51 Tubal ligation status; Z98.890 Other specified postprocedural states; Z79.899 Other long term (current) drug therapy
CPT/HCPCS: 99283

== ENCOUNTER 2020-04-19 06:23 | Emergency (ER) | payer MEDICARE, MEDICAID ==
[~2020-04-19] VITALS: Ht 167.6 cm; Wt 69.0 kg
[2020-04-19] MEDS ORDERED: normal saline 1000ML IV soln IVB ONE (07:15)
[2020-04-19 08:09] LABS: BASOPHILS # (AUTO) 0.1 X10'3 (0-0.2); BASOPHILS % (AUTO) 0.4 % (0-1); EOSINOPHILS % (AUTO) 0.1 % (0-6); HEMATOCRIT 39.5 % (35.0-45.0); HEMOGLOBIN 12.8 g/dl (12.0-16.0); LYMPHOCYTES % (AUTO) 7.6 % (21-51); MEAN CORPUSCULAR HEMOGLOBIN 28.5 PG (27.0-31.0); MEAN CORPUSCULAR HGB CONC 32.3 g/dL (33.0-36.5); MEAN CORPUSCULAR VOLUME 88.3 FL (78-98); MEAN PLATELET VOLUME 8.9 FL (7.4-10.4); MONOCYTES # (AUTO) 0.6 X10'3 (0-0.9); MONOCYTES % (AUTO) 4.6 % (2-12); NEUTROPHILS % (AUTO) 87.3 % (42-75); PLATELET COUNT 283 X10'3 (140-440); RED BLOOD COUNT 4.48 X10'6 (4.20-5.60); RED CELL DISTRIBUTION WIDTH 13.5 % (11.5-14.5); WHITE BLOOD COUNT 13.7 X10'3 (4.5-11.0)
[2020-04-19 08:19] LABS: ALANINE AMINOTRANSFERASE 6 U/L (12-78); ALBUMIN 3.6 G/DL (3.4-5.0); ALKALINE PHOSPHATASE 87 IU/L (46-116); ANION GAP 12 (8-16); ASPARTATE AMINO TRANSFERASE 10 U/L (10-37); BILIRUBIN,TOTAL 0.5 MG/DL (0.1-1.0); BLOOD UREA NITROGEN 13 MG/DL (7-18); BUN/CREATININE RATIO 11.3 (6.6-38.0); CALCIUM 8.6 MG/DL (8.5-10.1); CHLORIDE 101 MMOL/L (99-107); CREATININE 1.15 MG/DL (0.40-0.90); GLUCOSE 181 MG/DL (70-104); POTASSIUM 3.4 MMOL/L (3.5-5.1); SODIUM 135 MMOL/L (135-145); TOTAL CARBON DIOXIDE 21.7 MMOL/L (24-32); TOTAL PROTEIN 7.1 G/DL (6.4-8.2); eGFR 46 ML/MIN
[2020-04-19 08:56] VITALS: BP 187/95
[2020-04-19] MEDS ORDERED: CARB1TAB21 PO (19:25)
[2020-04-19] MEDS ORDERED: PROM25TA14 PO (19:25)
[2020-04-19] MEDS ORDERED: ALPR-624 PO (19:25)
[2020-04-21] MEDS ORDERED: LEVE250T PO (11:47)
== END 2020-04-19 09:21 | disposition home or self-care (01) ==
LOC: ER 06:23
DX: R10.9 Unspecified abdominal pain (principal); G89.29 Other chronic pain; R11.2 Nausea with vomiting, unspecified; G20 Parkinson's disease; E78.00 Pure hypercholesterolemia, unspecified; I10 Essential (primary) hypertension; E11.9 Type 2 diabetes mellitus without complications; Z90.49 Acquired absence of other specified parts of digestive tract; Z90.710 Acquired absence of both cervix and uterus; Z98.51 Tubal ligation status; Z98.890 Other specified postprocedural states; Z79.899 Other long term (current) drug therapy
CPT/HCPCS: 36415; 70450; 80053; 82948; 85025; 99284; J7030; 96360

== ENCOUNTER 2020-04-19 09:46 | Emergency (ER) | payer MEDICARE, MEDICAID ==
[~2020-04-19] VITALS: Ht 167.6 cm; Wt 70.0 kg
[2020-04-19 10:01] VITALS: BP 211/98
--- NOTE | 2020-04-19 10:46 | NUR ---
Paged Case Management, spoke with Sarath. Notified her regarding patients status and second time in ED for the day. She stated that she would come down [facility].
[2020-04-19] MEDS ORDERED: ALPR-624 PO (19:25)
[2020-04-19] MEDS ORDERED: CARB1TAB21 PO (19:25)
[2020-04-19] MEDS ORDERED: PROM25TA14 PO (19:25)
[2020-04-21] MEDS ORDERED: LEVE250T PO (11:47)
== END 2020-04-19 11:31 | disposition home or self-care (01) ==
LOC: ER 09:47
DX: F41.9 Anxiety disorder, unspecified (principal); I10 Essential (primary) hypertension; G20 Parkinson's disease; E78.00 Pure hypercholesterolemia, unspecified; E11.9 Type 2 diabetes mellitus without complications; G89.29 Other chronic pain; R10.9 Unspecified abdominal pain; R11.2 Nausea with vomiting, unspecified; R53.1 Weakness; Z90.49 Acquired absence of other specified parts of digestive tract; Z90.710 Acquired absence of both cervix and uterus; Z98.51 Tubal ligation status; Z98.890 Other specified postprocedural states; Z79.899 Other long term (current) drug therapy
CPT/HCPCS: 99284

== ENCOUNTER 2021-02-18 06:25 | Emergency (ER) | payer MEDICARE, MEDICAID ==
[~2021-02-18] VITALS: Ht 162.6 cm; Wt 72.7 kg
[~2021-02-18 06:25] MED LIST changes: +ALPR-624 PO; -ALPR0.5T8 PO; -AMLO10TA2 PO; -ATOR10TA70 PO; +CARB1TAB34 PO; -CEPH500C5 PO; -DIPH25CA83 PO; -HYDR-4353 PO; +LEVE250T PO; -LISI-234 PO; -METF500T PO; -METO-292 PO; -ONDA4TAB12 PO; -ONDA4TAB6 PO; -ONDA8TAB13 PO; -ONDA8TAB6 PO; -PANT-47 PO; -PHE25R PR; -PHEN-824 PO; -POLY119P2 PO; -PREG150C PO; -PROC-8 PO; +PROM25TA14 PO; -SULF1TAB49 PO; -TRAZ-256 PO
[2021-02-18] MEDS ORDERED: ondansetron/PF 4mg/2ml inj IV ONE (06:30)
[2021-02-18] MEDS ORDERED: normal saline 1000ML IV soln IVB ONE (06:30)
--- NOTE | 2021-02-18 07:12 | NUR ---
back from ct scan in stable condiiton
[2021-02-18 07:16] LABS: BASOPHILS # (AUTO) 0.1 X10'3 (0-0.2); BASOPHILS % (AUTO) 0.8 % (0-1); EOSINOPHILS # (AUTO) 0.2 X10'3 (0-0.9); EOSINOPHILS % (AUTO) 2.7 % (0-6); HEMATOCRIT 39.8 % (35.0-45.0); HEMOGLOBIN 13.1 g/dl (12.0-16.0); LYMPHOCYTES # (AUTO) 1.8 X10'3 (1.1-4.8); LYMPHOCYTES % (AUTO) 23.6 % (21-51); MEAN CORPUSCULAR HEMOGLOBIN 28.7 PG (27.0-31.0); MEAN CORPUSCULAR HGB CONC 32.9 g/dL (33.0-36.5); MEAN CORPUSCULAR VOLUME 87.4 FL (78-98); MONOCYTES # (AUTO) 0.6 X10'3 (0-0.9); MONOCYTES % (AUTO) 7.3 % (2-12); NEUTROPHILS % (AUTO) 65.6 % (42-75); PLATELET COUNT 291 X10'3 (140-440); RED BLOOD COUNT 4.56 X10'6 (4.20-5.60); RED CELL DISTRIBUTION WIDTH 13.6 % (11.5-14.5); WHITE BLOOD COUNT 7.6 X10'3 (4.5-11.0)
[2021-02-18 07:29] LABS: ALANINE AMINOTRANSFERASE 9 U/L (12-78); ALBUMIN 3.7 G/DL (3.4-5.0); ALBUMIN/GLOBULIN RATIO 0.9 (1.1-1.5); ALKALINE PHOSPHATASE 88 IU/L (46-116); ANION GAP 13 (8-16); ASPARTATE AMINO TRANSFERASE 25 U/L (10-37); BILIRUBIN,TOTAL 0.5 MG/DL (0.1-1.0); BLOOD UREA NITROGEN 17 MG/DL (7-18); BUN/CREATININE RATIO 16.8 (6.6-38.0); CALCIUM 9.1 MG/DL (8.5-10.1); CHLORIDE 104 MMOL/L (99-107); CREATININE 1.01 MG/DL (0.40-0.90); GLUCOSE 133 MG/DL (70-104); LIPASE 98 U/L (73-393); POTASSIUM 3.4 MMOL/L (3.5-5.1); SODIUM 141 MMOL/L (135-145); TOTAL CARBON DIOXIDE 23.6 MMOL/L (24-32); TOTAL PROTEIN 7.6 G/DL (6.4-8.2); eGFR 53 ML/MIN
[2021-02-18 07:57] LABS: CLARITY,URINE SLIGHTLY CLOUDY (Clear); COLOR,URINE YELLOW (Yellow); GLUCOSE, URINE NEGATIVE (Neg); KETONES,URINE NEGATIVE (Neg); LEUKOCYTE ESTERASE ,URINE MODERATE (Neg); NITRITES, URINE NEGATIVE (Neg); OCCULT BLOOD,URINE NEGATIVE (Neg); PH,URINE 8.5 (4.8-8.0); PROTEIN,URINE NEGATIVE (Neg); UROBILINOGEN,URINE 0.2 E.U/dL (0.2-1.0)
[2021-02-18 08:03] LABS: UA COLLECTION TYPE CLN CATCH MIDSTREAM
[2021-02-18 08:04] LABS: BACTERIA,URINE 4+ /HPF (Neg); MUCUS STRANDS NONE SEEN /LPF (Neg); RBC,URINE NONE SEEN /HPF (0-2); SQUAMOUS EPITHELIAL CELL,UR NONE SEEN /LPF (FEW)
[2021-02-18] MEDS ORDERED: morphine 4 MG/ML inj SYRINge IV ONE ×3 (08:05→09:00)
[2021-02-18] MEDS ORDERED: CefTRIAXone/D5W-Rocephin 1gm 50 ML IV ONE (08:35)
[2021-02-18] MEDS ORDERED: CEPH-585 PO (09:05)
[2021-02-18] MEDS ORDERED: ONDA4TAB6 PO (09:05)
--- NOTE | 2021-02-18 09:21 | NUR ---
MESSAGE LEFT FOR SON TO COME TO DISCHARGE SPECIALIST PATIENT.
--- NOTE | 2021-02-18 10:32 | NUR ---
pt has voided x3
--- NOTE | 2021-02-18 10:40 | NUR ---
RECHECKED BP 174/127 LEFT LOWER ARM. 191/[address] ARM[address] INFOR[address]. ALTAMIRANO. OK WITH PT BEING DISCHARGED, TO F/U WITH PRIMARY
[2021-02-18 10:46] VITALS: BP 174/127
== END 2021-02-18 10:48 | disposition home or self-care (01) ==
LOC: ER 06:26
DX: N39.0 Urinary tract infection, site not specified (principal); R10.10 Upper abdominal pain, unspecified; R11.2 Nausea with vomiting, unspecified; E78.00 Pure hypercholesterolemia, unspecified; I10 Essential (primary) hypertension; G89.29 Other chronic pain; F41.9 Anxiety disorder, unspecified; Z90.49 Acquired absence of other specified parts of digestive tract; Z90.710 Acquired absence of both cervix and uterus; Z98.51 Tubal ligation status; Z98.890 Other specified postprocedural states; Z79.899 Other long term (current) drug therapy
CPT/HCPCS: 36415; 74176; 80053; 81001; 83690; 85025; 87077; 87088; 87186; 96365; 96375; 96376; 99284; J0696; J2270; J2405; J7030

== ENCOUNTER 2021-02-23 16:18 | Emergency (ER) | payer MEDICARE, MEDICAID ==
[~2021-02-23] VITALS: Ht 162.6 cm; Wt 72.7 kg
[~2021-02-23 16:18] MED LIST changes: +CEPH-585 PO; +ONDA4TAB6 PO
[2021-02-23 16:27] VITALS: BP 171/88
[2021-02-23 17:05] LABS: BASOPHILS # (AUTO) 0.1 X10'3 (0-0.2); BASOPHILS % (AUTO) 0.9 % (0-1); EOSINOPHILS # (AUTO) 0.2 X10'3 (0-0.9); EOSINOPHILS % (AUTO) 2.1 % (0-6); HEMATOCRIT 38.2 % (35.0-45.0); HEMOGLOBIN 12.6 g/dl (12.0-16.0); LYMPHOCYTES # (AUTO) 2.9 X10'3 (1.1-4.8); LYMPHOCYTES % (AUTO) 28.4 % (21-51); MEAN CORPUSCULAR HEMOGLOBIN 28.5 PG (27.0-31.0); MEAN CORPUSCULAR HGB CONC 32.9 g/dL (33.0-36.5); MEAN CORPUSCULAR VOLUME 86.6 FL (78-98); MEAN PLATELET VOLUME 7.9 FL (7.4-10.4); MONOCYTES # (AUTO) 0.8 X10'3 (0-0.9); MONOCYTES % (AUTO) 7.5 % (2-12); NEUTROPHILS # (AUTO) 6.3 X10'3 (1.8-7.7); NEUTROPHILS % (AUTO) 61.1 % (42-75); PLATELET COUNT 304 X10'3 (140-440); RED BLOOD COUNT 4.41 X10'6 (4.20-5.60); RED CELL DISTRIBUTION WIDTH 13.7 % (11.5-14.5); WHITE BLOOD COUNT 10.3 X10'3 (4.5-11.0)
[2021-02-23 17:18] LABS: ALBUMIN 3.5 G/DL (3.4-5.0); ALKALINE PHOSPHATASE 84 IU/L (46-116); ANION GAP 13 (8-16); ASPARTATE AMINO TRANSFERASE 15 U/L (10-37); BILIRUBIN,TOTAL 0.3 MG/DL (0.1-1.0); BLOOD UREA NITROGEN 20 MG/DL (7-18); BUN/CREATININE RATIO 18.5 (6.6-38.0); CALCIUM 8.5 MG/DL (8.5-10.1); CHLORIDE 102 MMOL/L (99-107); CREATININE 1.08 MG/DL (0.40-0.90); GLUCOSE 114 MG/DL (70-104); LIPASE 131 U/L (73-393); POTASSIUM 3.9 MMOL/L (3.5-5.1); SODIUM 136 MMOL/L (135-145); TOTAL CARBON DIOXIDE 20.6 MMOL/L (24-32); TOTAL PROTEIN 7.1 G/DL (6.4-8.2); eGFR 49 ML/MIN
[2021-02-23 17:27] LABS: ALANINE AMINOTRANSFERASE 11 U/L (12-78)
== END 2021-02-23 20:03 | disposition left against medical advice (07) ==
LOC: ER 16:19
DX: R10.9 Unspecified abdominal pain (principal); Z53.21 Procedure and treatment not carried out due to patient leaving prior to being seen by health care provider
CPT/HCPCS: 36415; 80053; 83690; 85025

== ENCOUNTER 2021-06-07 04:57 | Emergency (ER) | payer MEDICARE, MEDICAID ==
[~2021-06-07] VITALS: Ht 172.7 cm; Wt 95.0 kg
[2021-06-07] MEDS ORDERED: normal saline 1000ML IV soln IVB ONE ×2 (05:10→05:55)
[2021-06-07] MEDS ORDERED: ondansetron/PF 4mg/2ml inj IV ONE (05:10)
[2021-06-07 05:27] LABS: BASOPHILS # (AUTO) 0.1 X10'3 (0-0.2); BASOPHILS % (AUTO) 0.5 % (0-1); EOSINOPHILS # (AUTO) 0.4 X10'3 (0-0.9); EOSINOPHILS % (AUTO) 3.8 % (0-6); HEMATOCRIT 34.7 % (35.0-45.0); HEMOGLOBIN 11.6 g/dl (12.0-16.0); LYMPHOCYTES # (AUTO) 2.1 X10'3 (1.1-4.8); LYMPHOCYTES % (AUTO) 18.2 % (21-51); MEAN CORPUSCULAR HEMOGLOBIN 29.4 PG (27.0-31.0); MEAN CORPUSCULAR HGB CONC 33.4 g/dL (33.0-36.5); MEAN CORPUSCULAR VOLUME 88.2 FL (78-98); MEAN PLATELET VOLUME 6.7 FL (7.4-10.4); MONOCYTES # (AUTO) 0.9 X10'3 (0-0.9); NEUTROPHILS # (AUTO) 7.8 X10'3 (1.8-7.7); NEUTROPHILS % (AUTO) 69.5 % (42-75); PLATELET COUNT 308 X10'3 (140-440); RED BLOOD COUNT 3.93 X10'6 (4.20-5.60); RED CELL DISTRIBUTION WIDTH 14.7 % (11.5-14.5); WHITE BLOOD COUNT 11.3 X10'3 (4.5-11.0)
[2021-06-07 05:38] LABS: ALANINE AMINOTRANSFERASE 9 U/L (12-78); ALBUMIN 3.3 G/DL (3.4-5.0); ALBUMIN/GLOBULIN RATIO 0.9 (1.1-1.5); ALKALINE PHOSPHATASE 96 IU/L (46-116); ANION GAP 12 (8-16); ASPARTATE AMINO TRANSFERASE 17 U/L (10-37); BILIRUBIN,TOTAL 0.3 MG/DL (0.1-1.0); BLOOD UREA NITROGEN 18 MG/DL (7-18); BUN/CREATININE RATIO 17.5 (6.6-38.0); CALCIUM 8.1 MG/DL (8.5-10.1); CHLORIDE 99 MMOL/L (99-107); CREATININE 1.03 MG/DL (0.40-0.90); GLUCOSE 130 MG/DL (70-104); LIPASE 170 U/L (73-393); POTASSIUM 4.3 MMOL/L (3.5-5.1); SODIUM 134 MMOL/L (135-145); TOTAL CARBON DIOXIDE 22.9 MMOL/L (24-32); TOTAL PROTEIN 7.1 G/DL (6.4-8.2); eGFR 52 ML/MIN
[2021-06-07] MEDS ORDERED: metoclopramide 5 mg/ml inj IV ONE (05:55)
--- NOTE | 2021-06-07 05:59 | NUR ---
alex cathed and urine collected. dr. greene updated that Pt remains nauseaus. Adtl fluids and anti emetic ordered.
[2021-06-07] MEDS ORDERED: famotidine/PF 10 mg/ml inj IV ONE (06:10)
[2021-06-07] MEDS ORDERED: pantoprazole 40 MG vial IV ONE (06:10)
[2021-06-07 06:14] LABS: CLARITY,URINE CLEAR (Clear); COLOR,URINE YELLOW (Yellow); GLUCOSE, URINE NEGATIVE (Neg); KETONES,URINE NEGATIVE (Neg); LEUKOCYTE ESTERASE ,URINE NEGATIVE (Neg); NITRITES, URINE NEGATIVE (Neg); OCCULT BLOOD,URINE NEGATIVE (Neg); PROTEIN,URINE NEGATIVE (Neg); UROBILINOGEN,URINE 0.2 E.U/dL (0.2-1.0)
[2021-06-07 06:25] LABS: UA COLLECTION TYPE NON-SPECIFIED
[2021-06-07 07:07] VITALS: BP 173/91
--- NOTE | 2021-06-07 07:08 | NUR ---
PT TOLERATED 200ML H2O WITH OUT ANY N/V
== END 2021-06-07 08:11 | disposition home or self-care (01) ==
LOC: ER 04:57
DX: K29.00 Acute gastritis without bleeding (principal); E86.0 Dehydration; R11.2 Nausea with vomiting, unspecified; R10.84 Generalized abdominal pain; I12.9 Hypertensive chronic kidney disease with stage 1 through stage 4 chronic kidney disease, or unspecified chronic kidney disease; E11.22 Type 2 diabetes mellitus with diabetic chronic kidney disease; N18.9 Chronic kidney disease, unspecified; E78.00 Pure hypercholesterolemia, unspecified; G89.29 Other chronic pain; F41.9 Anxiety disorder, unspecified; Z87.440 Personal history of urinary (tract) infections; Z90.89 Acquired absence of other organs; Z90.49 Acquired absence of other specified parts of digestive tract; Z90.710 Acquired absence of both cervix and uterus; Z98.51 Tubal ligation status; Z98.890 Other specified postprocedural states; Z79.2 Long term (current) use of antibiotics; Z79.899 Other long term (current) drug therapy
CPT/HCPCS: 36415; 80053; 81003; 83605; 83690; 85025; 96361; 96374; 96375; 99284; C9113; J2405; J2765; J3490; J7030

== ENCOUNTER 2021-06-10 08:53 | Emergency (ER) | payer MEDICARE, MEDICAID ==
[~2021-06-10] VITALS: Ht 172.7 cm; Wt 90.0 kg
[2021-06-10] MEDS ORDERED: ketorolac tromethamine 15mg/ml inj. IM ONE (10:25)
[2021-06-10] MEDS ORDERED: proCHLORperazine 10mg tablet PO ONE (10:25)
[2021-06-10 10:29] LABS: BASOPHILS % (AUTO) 0.5 % (0-1); EOSINOPHILS # (AUTO) 0.2 X10'3 (0-0.9); EOSINOPHILS % (AUTO) 3.2 % (0-6); HEMATOCRIT 33.8 % (35.0-45.0); HEMOGLOBIN 11.3 g/dl (12.0-16.0); LYMPHOCYTES # (AUTO) 1.6 X10'3 (1.1-4.8); LYMPHOCYTES % (AUTO) 21.2 % (21-51); MEAN CORPUSCULAR HEMOGLOBIN 29.5 PG (27.0-31.0); MEAN CORPUSCULAR HGB CONC 33.4 g/dL (33.0-36.5); MEAN CORPUSCULAR VOLUME 88.4 FL (78-98); MEAN PLATELET VOLUME 6.6 FL (7.4-10.4); MONOCYTES # (AUTO) 0.6 X10'3 (0-0.9); MONOCYTES % (AUTO) 7.5 % (2-12); NEUTROPHILS # (AUTO) 5.1 X10'3 (1.8-7.7); NEUTROPHILS % (AUTO) 67.6 % (42-75); PLATELET COUNT 289 X10'3 (140-440); RED BLOOD COUNT 3.82 X10'6 (4.20-5.60); RED CELL DISTRIBUTION WIDTH 14.7 % (11.5-14.5); WHITE BLOOD COUNT 7.6 X10'3 (4.5-11.0)
[2021-06-10 10:43] LABS: PARTIAL THROMBOPLASTIN TIME 26 SECONDS (22-32)
[2021-06-10 10:45] LABS: ALANINE AMINOTRANSFERASE 6 U/L (12-78); ALBUMIN 3.3 G/DL (3.4-5.0); ALBUMIN/GLOBULIN RATIO 0.9 (1.1-1.5); ALKALINE PHOSPHATASE 91 IU/L (46-116); ANION GAP 10 (8-16); ASPARTATE AMINO TRANSFERASE 13 U/L (10-37); BILIRUBIN,TOTAL 0.4 MG/DL (0.1-1.0); BLOOD UREA NITROGEN 20 MG/DL (7-18); BUN/CREATININE RATIO 20.8 (6.6-38.0); CALCIUM 8.3 MG/DL (8.5-10.1); CHLORIDE 102 MMOL/L (99-107); CREATININE 0.96 MG/DL (0.40-0.90); GLUCOSE 105 MG/DL (70-104); LIPASE 64 U/L (73-393); POTASSIUM 4.2 MMOL/L (3.5-5.1); SODIUM 138 MMOL/L (135-145); TOTAL CARBON DIOXIDE 26.3 MMOL/L (24-32); eGFR 56 ML/MIN
--- NOTE | 2021-06-10 11:41 | NUR ---
pt sitting up on gurney, states she is unable to void as yet
--- NOTE | 2021-06-10 13:04 | NUR ---
attempted to straight cath pt per miracle order. pt states hx of 4 vaginal births and reconstruction due to hx of bladder prolapse. unable to obtain urine. miracle made aware
[2021-06-10 13:38] VITALS: BP 187/78
== END 2021-06-10 13:41 | disposition home or self-care (01) ==
LOC: ER 08:54
DX: R11.0 Nausea (principal); R10.13 Epigastric pain; G20 Parkinson's disease; E78.00 Pure hypercholesterolemia, unspecified; I10 Essential (primary) hypertension; E11.9 Type 2 diabetes mellitus without complications; G89.29 Other chronic pain; Z87.440 Personal history of urinary (tract) infections; Z90.49 Acquired absence of other specified parts of digestive tract; Z90.710 Acquired absence of both cervix and uterus; Z98.84 Bariatric surgery status; Z98.890 Other specified postprocedural states; Z79.2 Long term (current) use of antibiotics; Z79.899 Other long term (current) drug therapy
CPT/HCPCS: 36415; 80053; 83690; 84484; 85025; 85610; 85730; 93005; 96372; 99284; J1885; Q0164

== ENCOUNTER 2021-07-07 11:05 | Emergency (ER) | payer MEDICARE, MEDICAID ==
[~2021-07-07] VITALS: Ht 162.6 cm; Wt 77.0 kg
[2021-07-07] MEDS ORDERED: fentaNYL/PF 50MCG/1 ML 2ML syringe IV ONE (12:35)
[2021-07-07] MEDS ORDERED: proCHLORperazine 10 MG/2 ml inj IV ONE (12:35)
[2021-07-07] MEDS ORDERED: normal saline 1000ml 1,000 ML IV ONE (12:35)
[2021-07-07 12:54] LABS: BASOPHILS # (AUTO) 0.1 X10'3 (0-0.2); BASOPHILS % (AUTO) 0.9 % (0-1); EOSINOPHILS # (AUTO) 0.1 X10'3 (0-0.9); EOSINOPHILS % (AUTO) 1.6 % (0-6); HEMOGLOBIN 12.7 g/dl (12.0-16.0); LYMPHOCYTES # (AUTO) 2.2 X10'3 (1.1-4.8); LYMPHOCYTES % (AUTO) 25.2 % (21-51); MEAN CORPUSCULAR HEMOGLOBIN 29.8 PG (27.0-31.0); MEAN CORPUSCULAR HGB CONC 33.4 g/dL (33.0-36.5); MEAN PLATELET VOLUME 7.2 FL (7.4-10.4); MONOCYTES # (AUTO) 0.6 X10'3 (0-0.9); MONOCYTES % (AUTO) 7.3 % (2-12); NEUTROPHILS # (AUTO) 5.7 X10'3 (1.8-7.7); PLATELET COUNT 266 X10'3 (140-440); RED BLOOD COUNT 4.26 X10'6 (4.20-5.60); RED CELL DISTRIBUTION WIDTH 14.5 % (11.5-14.5); WHITE BLOOD COUNT 8.8 X10'3 (4.5-11.0)
[2021-07-07 13:15] LABS: ALANINE AMINOTRANSFERASE 21 U/L (12-78); ALBUMIN 3.4 G/DL (3.4-5.0); ALBUMIN/GLOBULIN RATIO 0.8 (1.1-1.5); ALKALINE PHOSPHATASE 108 IU/L (46-116); ANION GAP 9 (8-16); ASPARTATE AMINO TRANSFERASE 12 U/L (10-37); BILIRUBIN,TOTAL 0.2 MG/DL (0.1-1.0); BLOOD UREA NITROGEN 19 MG/DL (7-18); BUN/CREATININE RATIO 17.6 (6.6-38.0); CALCIUM 8.4 MG/DL (8.5-10.1); CHLORIDE 107 MMOL/L (99-107); CREATININE 1.08 MG/DL (0.40-0.90); GLUCOSE 98 MG/DL (70-104); LIPASE 84 U/L (73-393); POTASSIUM 3.8 MMOL/L (3.5-5.1); SODIUM 141 MMOL/L (135-145); TOTAL CARBON DIOXIDE 25.2 MMOL/L (24-32); TOTAL PROTEIN 7.5 G/DL (6.4-8.2); eGFR 49 ML/MIN
[2021-07-07 13:21] LABS: CLARITY,URINE SLIGHTLY CLOUDY (Clear); COLOR,URINE YELLOW (Yellow); GLUCOSE, URINE NEGATIVE (Neg); KETONES,URINE NEGATIVE (Neg); LEUKOCYTE ESTERASE ,URINE NEGATIVE (Neg); NITRITES, URINE NEGATIVE (Neg); OCCULT BLOOD,URINE NEGATIVE (Neg); PROTEIN,URINE NEGATIVE (Neg); UROBILINOGEN,URINE 0.2 E.U/dL (0.2-1.0)
[2021-07-07 13:25] LABS: UA COLLECTION TYPE CLN CATCH MIDSTREAM
[2021-07-07 13:26] LABS: AMORPHOUS URATES 1+; BACTERIA,URINE NONE SEEN /HPF (Neg); MUCUS STRANDS FEW /LPF (Neg); RBC,URINE 0-2 /HPF (0-2); SQUAMOUS EPITHELIAL CELL,UR FEW /LPF (FEW); WBC,URINE 0-4 /HPF (0-4)
--- NOTE | 2021-07-07 14:28 | NUR ---
bop 224/105 hr 72, pain 9/10, reports she's taken her morning meds, drug clerk called pharmacy but off for lunch, Roosevelt BAUER made aware.
[2021-07-07] MEDS ORDERED: labetalol 20mg/4ml (5mg/ml) syringe IV ONE (15:05)
--- NOTE | 2021-07-07 15:05 | NUR ---
KAE QIU [phone]
[2021-07-07 16:56] VITALS: BP 191/93
== END 2021-07-07 16:57 | disposition home or self-care (01) ==
LOC: ER 11:06
DX: R10.84 Generalized abdominal pain (principal); I10 Essential (primary) hypertension; R11.0 Nausea; E78.00 Pure hypercholesterolemia, unspecified; E11.9 Type 2 diabetes mellitus without complications; G89.29 Other chronic pain; F41.9 Anxiety disorder, unspecified; Z87.440 Personal history of urinary (tract) infections; Z90.89 Acquired absence of other organs; Z90.49 Acquired absence of other specified parts of digestive tract; Z90.710 Acquired absence of both cervix and uterus; Z98.51 Tubal ligation status; Z98.890 Other specified postprocedural states; Z79.2 Long term (current) use of antibiotics; Z79.899 Other long term (current) drug therapy
CPT/HCPCS: 36415; 80053; 81001; 83690; 85025; 96361; 96374; 96375; 99285; J0780; J3010; J7030; J3490